=== PATIENT | female | born 1970 | race Two or more races ===

== ENCOUNTER 2020-04-05 17:28 | Outpatient (REF) | payer OTHER, SELFPAY | END 2020-04-05 17:29 | disposition home or self-care (01) | LOC: HO.LAB 17:28 | PROVIDERS: Visit Provider Internal Medicine | DX: Z20.828 Contact with and (suspected) exposure to other viral communicable diseases (principal) | CPT/HCPCS: C9803; U0003 ==

== ENCOUNTER 2020-05-24 10:55 | Outpatient (REF) | payer OTHER, SELFPAY | END 2020-05-24 10:56 | disposition home or self-care (01) | LOC: HO.LAB 10:55 | PROVIDERS: Visit Provider Internal Medicine | DX: Z20.828 Contact with and (suspected) exposure to other viral communicable diseases (principal) | CPT/HCPCS: 36415; C9803; U0003 ==

== ENCOUNTER 2024-11-25 15:22 | Outpatient (AMB) | payer OTHER, SELFPAY ==
--- OUTSIDE RECORDS SUMMARY | 2024-11-25 15:54 | XMS_ITS | Clinical Summary ---
[facility] [place] [address] Care Team Providers Care Industrial Ecology Technician Name Role Phone Jann Vance MD Primary Care Provider [phone] Surgical History Surgery Date Site/Laterality Comments OTHER SURGICAL HISTORY PROCEDURE: HYSTEROSCOPY, SURGICAL/ABLATION TUBAL LIGATION PROCEDURE: HISTORICAL TUBAL LIGATION OTHER SURGICAL HISTORY 02/2023 PROCEDURE: ID ANES CARDIAC ELECTROPHYSIOL STDY W/RF ABLATION; COMMENT: cardiav ablatojliliam Medical History Medical History Date Comments SVT (supraventricular tachyc ardia) (CMS/HCC V24) DX:SVT (supraventricular tac hycardia) ([facility]); COMMENT: cardiology - [facility] cariolgy 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 DX:Other specified menta l disorders due to known physiological condition Family History Medical History Relation Name Comments No Known Problems Brother Alzheimer's disease Father Hypertension Father No Known Problems Mother No Known Problems Sister 1 No Known Problems Sister 2 Relation Name Status Comments Brother Alive Father Father's side Alive Mother Alive Sister 1 Alive Sister 2 Alive Social History Tobacco Use Types Packs/Day Years Used Date Smoking Tobacco: Never Smokeless Tobacco: Never Alcohol Use Standard Drinks/Week Comments Yes 0 (1 standard drink = 0.6 oz pur e alcohol) Comments Unknown Sex and Gender Information Value Date Recorded Sex Assigned at Not on file Legal Sex Female 3:31 PM EST Gender Identity Not on file Sexual Orientation Not on file Obstetrics History Last Filed Vital Signs Vital Sign Reading Time Taken Comments Blood Pressure 120/83 01/23/2024 2:01 PM EDT Pulse 77 01/23/2024 2:01 PM EDT Temperature - - Respiratory Rate - - Oxygen Saturation - - Inhaled Oxygen Concentration - - Weight 59.4 kg (131 lb) 01/23/2024 2:01 PM EDT Height 165.1 cm (5' 5 ) 01/23/2024 2:01 PM EDT Body Mass Index 21.8 01/23/2024 2:01 PM EDT Plan of Treatment Health Maintenance Due Date Last Done Comments Breast Cancer Screening 1970 DTaP,Tdap,and Td Vaccines (1 - Tdap) 1988 Hepatitis B Vaccines (1 of 3 - 19+ 3-dose series) 1988 Cervical Cancer Screening: P ap Smear 1990 Pneumococcal Vaccine: 50+ Ye ars (1 of 1 - PCV) 12/16/2019 Zoster Vaccines (1 of 2) 12/16/2019 Colorectal Cancer Screening: Colonoscopy 04/19/2022 Depression Screening 04/19/2022 HIV Screening 04/19/2022 Hepatitis C Screening 04/19/2022 Social Influencers of Health Screening 04/19/2022 COVID-19 Vaccine (1 - 2023-2 5 season) 2024 Influenza Vaccine (#1) 2025 HIB Vaccines Aged Out No longer eligi ble based on patient's age to complete this topic HPV Vaccines Aged Out No longer eligi ble based on patient's age to complete this topic Hepatitis A Vaccines Aged Out No long er eligible based on patient's age to complete this topic IPV Vaccines Aged Out No longer eligi ble based on patient's age to complete this topic MMR Vaccines Aged Out No longer eligi ble based on patient's age to complete this topic Meningococcal ACWY Vaccine Aged Out N o longer eligible based on patient's age to complete this topic Meningococcal B Vaccine Aged Out No l onger eligible based on patient's age to complete this topic Pneumococcal Vaccine: Pediat rics (0 to 5 Years) and At-Risk Patients (6 to 49 Years) Aged Out No longer eligible b ased on patient's age to complete this topic RSV Immunization Patients Un lidya 20 months Aged Out No longer eligible b ased on patient's age to complete this topic Varicella Vaccines Aged Out No longer eligible based on patient's age to complete this topic Care Teams Industrial Ecology Technician Relationship Specialty Start Date End Date Jann Vance MD PCP - General 12/20/17
--- OUTSIDE RECORDS SUMMARY | 2024-11-25 15:54 | XMS_ITS | Patient Health Record ---
Author Organization [facility] Address [address] [id number] Care Team Providers Care Machine Spring Former Name Role Phone Jann Vance Primary Care Provider [phone] Cintia Sam Unavailable [phone] Allergies No Known Allergies Results Component Value Reference Range Notes MM Digital Mammo Screening Reviewed date:11/19/2024 09:19:21 PM Interpretation: Performing Lab: Notes/Report: PROCEDURE: MM Digital Mammo Screening INDICATION: Screening for breast cancer. No known palpable abnormalities. COMPARISON: Priors dating back to 01/15/2021 TECHNIQUE: Full-field digital CC and MLO 3D tomosynthesis images of both breasts were acquired. Computer-aided detection (CAD) was utilized in the interpretation of this study. DENSITY: The breasts are heterogeneously dense, which may obscure small masses. FINDINGS: No suspicious masses, suspicious microcalcifications, or areas of architectural distortion are seen in either breast to suggest malignancy. IMPRESSION: No mammographic evidence of malignancy. RECOMMENDATION: Annual mammographic screening BI-RADS: 1 (Negative) Lay letter mailed to patient WSN: [id number] Ordering Physician: Jann Vance Dictated By: Wendy Riggs MD MM Digital Mammo Screening Reviewed date:11/13/2024 01:49:28 PM Interpretation: Performing Lab: Notes/Report: EKG Reviewed date:02/15/2024 12:36:07 PM Interpretation: Performing Lab: Notes/Report: ECGDiastolicBP 0 ECGHr 74 ECGPRInterval 182 ECGPWaveAxis 58 ECGQRSDuration 94 ECGQrsWaveAxis 19 ECGQTcInterval 398 ECGQTInterval 374 ECGSystolicBP 0 ECGTWaveAxis 50 RR_DiastolicBP 0 RR_MaxRRInterval 0 RR_MeanHR 0 RR_MeanRRInterval 0 RR_MinRRInterval 0 RR_NumBeats 0 RR_NumNormalBeats 0 RR_SystolicBP 0 TSH reflex to [id number] Reviewed date:02/15/2024 12:36:07 PM Interpretation: Performing Lab:[facility], [address] [place] [address], Phone - [phone], Director - MDdry Notes/Report: TSH 2.200 0.450-4.500 uIU/mL Comp. Metabolic Panel (14)-3 59321 Reviewed date:02/15/2024 12:36:07 PM Interpretation: Performing Lab:[facility], [address] [place] [address], Phone - [phone], Director - [place] Notes/Report: Glucose 85 70-99 mg/dL BUN 18 6-24 mg/dL Creatinine 0.77 0.57-1.00 mg/dL eGFR 92 >59 mL/min/1.73 BUN/Creatinine Ratio 23 9-23 Sodium 141 134-144 mmol/L Potassium 4.2 3.5-5.2 mmol/L Chloride 102 96-106 mmol/L Carbon Dioxide, Total 23 20-29 mmol/L Calcium 9.5 8.7-10.2 mg/dL Protein, Total 6.8 6.0-8.5 g/dL Albumin 4.4 3.8-4.9 g/dL Globulin, Total 2.4 1.5-4.5 g/dL Bilirubin, Total 0.6 0.0-1.2 mg/dL Alkaline Phosphatase 86 44-121 IU/L AST (SGOT) 27 0-40 IU/L ALT (SGPT) 12 0-32 IU/L CBC With Differential/Platel et-[id number] Reviewed date:02/15/2024 12:36:07 PM Interpretation: Performing Lab:[facility], [address] [place] [address], Phone - [phone], Director - [place] Notes/Report: WBC 6.6 3.4-10.8 x10E3/uL RBC 4.16 3.77-5.28 x10E6/uL Hemoglobin 12.6 11.1-15.9 g/dL Hematocrit 37.9 34.0-46.6 % MCV 91 79-97 fL MCH 30.3 26.6-33.0 pg MCHC 33.2 31.5-35.7 g/dL RDW 13.0 11.7-15.4 % Platelets 302 150-450 x10E3/uL Neutrophils 61 Not Estab. % Lymphs 32 Not Estab. % Monocytes 5 Not Estab. % Eos 1 Not Estab. % Basos 1 Not Estab. % Neutrophils (Absolute) 4.0 1.4-7.0 x10E3/uL Lymphs (Absolute) 2.1 0.7-3.1 x10E3/uL Monocytes(Absolute) 0.3 0.1-0.9 x10E3/uL Eos (Absolute) 0.0 0.0-0.4 x10E3/uL Baso (Absolute) 0.0 0.0-0.2 x10E3/uL Immature Granulocytes 0 Not Estab. % Immature Grans (Abs) 0.0 0.0-0.1 x10E3/uL Phosphorylated Tau 217 (pTau -217) Reviewed date:10/29/2024 06:44:02 PM Interpretation: Performing Lab:[facility], [address], Phone - [phone], Director - [facility] Notes/Report: Test(s) [id number] was developed and its performance characteristics determined by [facility]. It has not been cleared or approved by the Food and Drug Administration. p-pfi363 0.39 0.00-0.18 pg/mL Clinical cutoff value was established using samples from a patient cohort characterized with amyloid PET data. A p-qbr062 value of >0.18 is a reported surrogate marker for beta amyloid pathology, and can be used to facilitate biological identification of Alzheimer's disease (1). p-sfm779 has also been used in clinical trials to monitor patients on anti-amyloid therapy (2,3). Test performed by [employer] chemiluminescent enzyme immunoassay (CLEIA). Values obtained with different methods cannot be used interchangeably. The validated limit of quantification is 0.06 pg/mL. Assay detection limit is 0.03 pg/mL. Footnotes 1. Ezra Negrete et al. Diagnostic Accuracy of a Plasma Phosphorylated Tau 217 Immunoassay for Alzheimer Disease Pathology. [facility] neurology (2023). 2. Ezra Negrete et al. Differential roles of A42/40, p-ggk516 and p-rrp701 for Alzheimer's trial selection and disease monitoring. Nature medicine 28.12 (2021): 5655-5618. 3. Roque LAMBERT, Lindsay M, Raquel SC, et al. Association of [place] Treatment With Exploratory Plasma Biomarkers in Early Symptomatic Alzheimer Disease: A Secondary Analysis of the TRAILBLAZER-ALZ Randomized Clinical Trial . [facility] Neurol. 2021;79(12):8030-0970. MR Brain Reviewed date:10/29/2024 06:44:02 PM Interpretation: Performing Lab: Notes/Report: Original Report EXAM: MR BRAIN WITHOUT CONTRAST INDICATION: Cognitive impairment of uncertain etiology, short-term memory loss, family history of Alzheimer's TECHNIQUE: Multiplanar multisequence imaging of the brain was obtained, without intravenous contrast administration. COMPARISON: Brain MRI from March 2023 FINDINGS: There are no space-occupying mass lesions seen within the brain. No midline shift, mass effect or hemorrhage is seen. Ventricular system is symmetrical, without hydrocephalus. No acute infarction is seen on diffusion images. Stable focus of susceptibility is seen along the left pontomedullary junction, as before suggestive of hemosiderin deposition. This could represent a small cavernous hemangioma. Craniocervical junction is preserved and the fourth ventricle is in the midline. Normal signal flow voids are seen along the major intracranial arteries. Visualized orbits and region of sella are preserved. No signal abnormalities are seen within the hippocampal formation. The calvarium is intact. IMPRESSION: 1. No acute intracranial pathology seen. No interval change since prior exam. 2. Stable focus of susceptibility in the left pontomedullary junction, suggestive of hemosiderin deposition versus calcification, as before. Read by: Angelica Leavitt M.D. Reviewed and Electronically Signed by: Sol Nath Informed Consent Fo Reviewed date:10/29/2024 06:44:02 PM Interpretation: Performing Lab:[facility], [address], [address], [place], Phone - [phone], Director - [facility] Notes/Report: [facility] Informed Consent Form [facility] Informed Consent Form 02 Please Fax back to [phone]. Many states require laboratories to have documentation that the appropriate health care provider has obtained informed consent from patients before the laboratory conducts genetic testing. Informed consent includes the patient understanding the purpose of the test, how the test is performed, the reliability of the test, alternatives to testing, implications of test results, and options on how to instruct the laboratory to store, use or dispose of the sample when testing is complete. [facility] did not receive any documentation of informed consent for above mentioned patient and ordered tests. Please check the statement applicable to this patient and sign below so that [facility] may release the results for this patient. . [] I authorize and confirm patient consent for the above mentioned genetic test(s). . [] I have provided appropriate informed consent for the above mentioned test(s) and documentation of this consent is maintained in the patient record. . . Health care provider signature D ate . Printed name . Fax back to [facility] at [phone] . [facility] Genetic Services APOE Alzheimer's Risk-200912 Reviewed date:10/29/2024 06:44:02 PM Interpretation: Performing Lab:[facility], [address], Phone - [phone], Director - [facility] Notes/Report: Test(s) [id number] was developed and its performance characteristics determined by [facility]. It has not been cleared or approved by the Food and Drug Administration. Methodology: Patient DNA is assayed for the APOE genotype by PCR amplification of a specific region in exon 4 of the APOE gene followed by digestion with restriction enzyme Checker I and separation of fragments by polyacrylamide gel electrophoresis. This approach allows the APOE E2, E3, and E4 alleles to be distinguished. Analytical sensitivity and specificity are >99.5%. Individuals are interpreted as having one of the following genotypes: E2/E2, E3/E3, E4/E4, E2/E3, E2/E4, E3/E4. APO E Genotyping Result: E3/E3 Interpretation: Negative for the APOE4 variant that is associated with increased risk for late onset Alzheimer's disease (AD). E3/E3 is the most common APOE genotype and is not associated with increased risk for AD. RECOMMENDATIONS Genetic counseling is recommended. Due to the lack of measures to prevent the development of AD, the ACMG/NSGC guidelines do not recommend presymptomatic testing, but if it is performed, guidelines are provided (Miller TENA et al. 2011). The APOE Genotyping: Alzheimer's Risk test is not recommended for children. NOTE: This is not a diagnostic test. Results should be interpreted along with clinical findings and other data. This test evaluates only for the APOE genotype and cannot detect genetic abnormalities elsewhere in the genome. It should be realized that there are possible sources of error including sample misidentification, rare technical errors, trace contamination of PCR reactions, and rare genetic variants that may interfere with analysis. For inquiries or genetic consultation, please call [facility] at . Comment: INFORMATION ABOUT THE APOE GENOTYPE AND ALZHEIMER'S DISEASE Alzheimer's disease (AD) is the most common form of dementia in the elderly and currently affects more than 5 million Americans. It is a progressive neurodegenerative disorder with brain findings of plaques and neurofibrillary tangles containing beta-amyloid and tau protein respectively. The predominant form of AD is late onset (age > 60-65), which can be familial (15-20%) or sporadic. The APOE4 variant increases the risk for late onset AD and may contribute to the pathology of the disease. This risk is increased by approximately 2 to 3-fold for individuals with one copy of the APOE4 variant and by approximately 10 [id number] for individuals with two copies of this variant (E4/E4 genotype). The APOE2 variant has some protective effect against development of late onset AD. The lifetime risk for late onset AD is approximately 10-12% in the general population, though it is higher in women than men and doubles when there is a first degree relative with this disorder. The lifetime risk is approximately 9% for individuals negative for APOE4, and for individuals with E4/E4 may be as high as 25% for males and 45% for females. Among patients with late onset AD, the presence of APOE4 may lead to earlier development of symptoms. However, APOE4 is neither necessary nor sufficient for the development of AD. Approximately 30-50% of patients with late onset AD do not have an APOE4 allele. APOE4 is common, with 25% of the general population having one copy and 1% having two copies of this variant. Among patients with late onset AD, 50-70% are positive for APOE4. The development of late onset AD is influenced by many factors other than APOE4 including age, gender, family history, level of education and history of head trauma. Midlife cardiovascular risk factors in individuals with APOE4 also increase risk for cognitive decline. A number of genetic influences in addition to APOE4 have also been reported and are under investigation. This test was developed and its performance characteristics determined by [facility]. It has not been cleared or approved by the Food and Drug Administration. The FDA has determined that such clearance or approval is not necessary. REFERENCES Deanne A et al. Sex modifies the APOE-related risk of developing Alzheimer disease. Annal Neurol 2014;75(4):563-573 Kristofer CHAVEZ. Alzheimer Disease Overview. GeneReviews (internet). Chad GUERRERO et al., editors. [facility]: [facility], [place], [place]. Last revised 2014. Bhatt JS et al. Genetic counseling and testing for Alzheimer disease: Joint practice guidelines of the [place] [employer] and the National Society of Genetic Counselors. Rosio in Med 2011;13(6)359-606. Greg NAIK. Apolipoprotein E: Implications for AD neurobiology, epidemiology and risk assessment. Neurobiology of Aging 2011;32:778-790 [id number] Reviewed date:10/29/2024 06:44:02 PM Interpretation: Performing Lab:[facility], [address], Phone - [phone], Director - [facility] Notes/Report: Test(s) [id number] was developed and its performance characteristics determined by [facility]. It has not been cleared or approved by the Food and Drug Administration. TSH 2.970 0.450-4.500 uIU/mL Thyroxine (T4) Free, Direct- [id number] Reviewed date:10/29/2024 06:44:02 PM Interpretation: Performing Lab:[facility], [address], Phone - [phone], Director - [facility] Notes/Report: Test(s) [id number] was developed and its performance characteristics determined by [facility]. It has not been cleared or approved by the Food and Drug Administration. T4,Free(Direct) 0.76 0.82-1.77 ng/dL Urinalysis, Complete-[id number] Reviewed date:07/29/2024 05:58:30 PM Interpretation: Performing Lab:[facility] [place], [address] [place] [address], Phone - [phone], Director - [facility] Notes/Report: Specific [place] 1.020 1.005-1.030 pH 7.0 5.0-7.5 Urine-Color Yellow Yellow Appearance Clear Clear WBC Esterase 1+ Negative Protein Trace Negative/Trace Glucose Negative Negative Ketones Negative Negative Occult Blood Negative Negative Bilirubin Negative Negative Urobilinogen,Semi-Qn 1.0 0.2-1.0 mg/dL Nitrite, Urine Positive Negative Microscopic Examination See below: Micr oscopic was indicated and was performed. WBC 0-5 0 - 5 /hpf RBC None seen 0 - 2 /hpf Epithelial Cells (non renal) 0-10 0 - 10 /hpf Casts None seen None seen /lpf Bacteria None seen None seen/Few Vitamin [id number] Reviewed date:10/29/2024 06:44:01 PM Interpretation: Performing Lab:[facility], [address], Phone - [phone], Director - [facility] Notes/Report: Test(s) [id number] was developed and its performance characteristics determined by [facility]. It has not been cleared or approved by the Food and Drug Administration. Vitamin B12 628 510-7428 pg/mL MM Digital Mammo Screening Reviewed date:11/19/2024 09:19:21 PM Interpretation: Performing Lab: Notes/Report: HCV Antibody-[id number] Reviewed date:07/29/2024 05:58:30 PM Interpretation: Performing Lab:[facility], [address] [place] [address], Phone - [phone], [facility] - [facility] Notes/Report: Hep C Virus Ab Non Reactive Non Reactive HCV antibody alone does not differentiate between previously resolved infection and active infection. Equivocal and Reactive HCV antibody results should be followed up with an HCV RNA test to support the diagnosis of active HCV infection. Thyroxine (T4) Free, Direct- [id number] Reviewed date:07/29/2024 05:58:30 PM Interpretation: Performing Lab:[facility] [place], [address] [place] [address], Phone - [phone], Director - MDdry Notes/Report: T4,Free(Direct) 0.78 0.82-1.77 ng/dL COLOGUARD Reviewed date:08/13/2024 06:23:42 PM Interpretation:Negative Performing Lab: Notes/Report: Negative FIT DNA COLOGUARD 08/12/2024 LP+Non-HDL Cholesterol-81172 5 Reviewed date:07/29/2024 05:58:30 PM Interpretation: Performing Lab:[facility] [place], [address] [place] [address], Phone - [phone], Director - [facility] Notes/Report: Cholesterol, Total 183 100-199 mg/dL Triglycerides 65 0-149 mg/dL HDL Cholesterol 68 >39 mg/dL VLDL Cholesterol [place] 12 5-40 mg/dL LDL Chol Calc (NIH) 103 0-99 mg/dL Non-HDL Cholesterol 115 0-129 mg/dL Comp. Metabolic Panel (14)-3 [id number] Reviewed date:07/29/2024 05:58:30 PM Interpretation: Performing Lab:[facility] [place], [address] [place] [address], Phone - [phone], Director - [facility] Notes/Report: Glucose 93 70-99 mg/dL BUN 18 6-24 mg/dL Creatinine 0.79 0.57-1.00 mg/dL eGFR 89 >59 mL/min/1.73 BUN/Creatinine Ratio 23 9-23 Sodium 142 134-144 mmol/L Potassium 4.3 3.5-5.2 mmol/L Chloride 103 96-106 mmol/L Carbon Dioxide, Total 23 20-29 mmol/L Calcium 9.7 8.7-10.2 mg/dL Protein, Total 6.9 6.0-8.5 g/dL Albumin 4.5 3.8-4.9 g/dL Globulin, Total 2.4 1.5-4.5 g/dL Bilirubin, Total 0.6 0.0-1.2 mg/dL Alkaline Phosphatase 98 44-121 IU/L AST (SGOT) 22 0-40 IU/L ALT (SGPT) 12 0-32 IU/L Vitamin D, 83-[id number] Reviewed date:07/29/2024 05:58:30 PM Interpretation: Performing Lab:[facility], [address] [facility], Phone - [phone], Director - [place] Notes/Report: Vitamin D, 25-Hydroxy 63.4 30.0-100.0 ng/mL Vitamin D deficiency has been defined by the [place] of Medicine and an Endocrine Society practice guideline as a level of serum 25-OH vitamin D less than 20 ng/mL (1,2). The Endocrine Society went on to further define vitamin D insufficiency as a level between 21 and 29 ng/mL (2). 1. IOM ([place] of [employer]). 2010. Dietary reference intakes for calcium and D. [place]: The National Academies Press. 2. Gwen MF, Roger NC, Bettina-Domingo PROCTOR, et al. Evaluation, treatment, and prevention of vitamin D deficiency: an Endocrine Society clinical practice guideline. JCEM. 2010; 96(7):1911-30. CBC With Differential/Platel et-[id number] Reviewed date:07/29/2024 05:58:30 PM Interpretation: Performing Lab:[facility], [address] [facility], [place], Phone - [phone], Director - [place] Notes/Report: WBC 5.3 3.4-10.8 x10E3/uL RBC 4.35 3.77-5.28 x10E6/uL Hemoglobin 12.9 11.1-15.9 g/dL Hematocrit 38.9 34.0-46.6 % MCV 89 79-97 fL MCH 29.7 26.6-33.0 pg MCHC 33.2 31.5-35.7 g/dL RDW 12.6 11.7-15.4 % Platelets 320 150-450 x10E3/uL Neutrophils 61 Not Estab. % Lymphs 29 Not Estab. % Monocytes 8 Not Estab. % Eos 1 Not Estab. % Basos 1 Not Estab. % Neutrophils (Absolute) 3.3 1.4-7.0 x10E3/uL Lymphs (Absolute) 1.5 0.7-3.1 x10E3/uL Monocytes(Absolute) 0.4 0.1-0.9 x10E3/uL Eos (Absolute) 0.1 0.0-0.4 x10E3/uL Baso (Absolute) 0.0 0.0-0.2 x10E3/uL Immature Granulocytes 0 Not Estab. % Immature Grans (Abs) 0.0 0.0-0.1 x10E3/uL Reason For Referral Reason faxed Diagnosis 1 Alzheimer's disease with early onset (G30.0) Referral Organization [facility] Referring Provider First Name Jann Referring Provider Last Name Rajiv [facility] Referred Provider Brendan Fletcher Referred Provider Specialty Neurology General Notes [facility] 01:01:35 PM >faxed, [facility] 10/24/2024 01:01:42 PM >To Berenice for appt., [facility] Graciela 10/28/2024 08:53:31 AM >Received fax, patient booked 11/25/[address] Sams[address] [facility] Graciela 10/28/2024 04:41:43 PM >Message sent to patient through portal of appt. Referral Priority Urgent Referral Appointment Date 11/25/2024 Reason faxed Diagnosis 1 Alzheimer's disease with early onset (G30.0) Referral Organization [facility] Referring Provider First Name Jann Referring Provider Last Name Rajiv Referring Provider [facility] Referred Provider Brendan Fletcher Referred Provider Specialty Neurology General Notes Graciela WILSON 10/19 04:49:32 PM >faxed Referral Priority Routine Medications Medication SIG (Take, Route, Frequency, Duration) Notes Start Date End Date Status LORazepam 1 MG 1 Tablet Orally Once a day 08/05/2024 Active Citalopram Hydrobromide 10 MG TAKE 1 TABLET BY MOUTH EVERY DAY FOR 30 DAYS; Duration: 90 Active Cyanocobalamin 1000 MCG 1 tablet Orally Once a day; Duration: 90 days 10/29/2024 10/24/2025 Active Cyanocobalamin 1000 MCG/ML 1 mL Injectio n Once a Week; Duration: 28 days 10/29/2024 11/26/2024 Active Immunizations Vaccine Route Administration Date Status Comme nts Td (adult) preservative free Unknown 08/18/2002 Administered Td (adult) preservative free IM Intramuscular 07/05/2021 Administered Wgxehktaq-7639-91 Afluria-Single IM Intramuscular 03/06/2018 Administered BBFBU-99-Tuwlxo Vaccine Unknown 08/19/2020 Administered BHZEK-94-Vpjevs Vaccine Unknown 09/10/2020 Administered XOZXC-32-Hvlqke Vaccine Unknown 05/18/2021 Administered *Tdap Unknown 01/30/2011 Administered *Influenza-Quadrivalent IM Intramuscular 04/17/2023 Admini stered *Influenza-Fluzone IM Intramuscular 03/13/2024 Administere d *Zmzzjpooz-Mhhy-OA IM Intramuscular 04/01/2020 Administere d *Nlncdvguw-Fimg-NJ IM Intramuscular 04/20/2021 Administere d *Jsmsxndrv-Hgqc-YO IM Intramuscular 03/28/2022 Administere d Social History Tobacco Use: Social History Observation Description Date Details (start date - stop date) Never Smoker NA - NA Alcohol Screen (Audit-C) Question Answer Notes Did you have a drink contain ing alcohol in the past year? Yes Did you have a drink contain ing alcohol in the past year? Yes How often did you have a dri nk containing alcohol in the past year? 2 to 4 times a month (2 points) How often did you have a dri nk containing alcohol in the past year? 2 to 4 times a month (2 points) How many drinks did you have on a typical day when you were drinking in the past year? 1 or 2 drinks (0 point) How many drinks did you have on a typical day when you were drinking in the past year? 1 or 2 drinks (0 point) How often did you have 6 or more drinks on one occasion in the past year? Never (0 point) How often did you have 6 or more drinks on one occasion in the past year? Never (0 point) Points 2 Points 2 Interpretation Negative Interpretation Negative AUDIT-C (Standard) Question Answer Notes Did you have a drink contain ing alcohol in the past year? Yes How often did you have six o r more drinks on one occasion in the past year? Never (0 point) How many drinks did you have on a typical day when you were drinking in the past year? 1 or 2 drinks (0 point) How often did you have a dri nk containing alcohol in the past year? Monthly or less (1 point) Points 1 Interpretation Negative Tobacco Control (Standard) Question Answer Notes Tobacco use: Nonsmoker Problems Problem Type SNOMED Code ICD Code Onset Dates Problem Status W/U Status Risk Notes Problem Pernicious anemia (06325718) Vitamin B12 deficiency anemia due to intrinsic factor deficiency (D51.0) Active confirmed Problem Hypothyroidism (06893163) Hypothyroidism, unspecified (E03.9) Active confirmed Problem Vitamin D deficiency (09892236) Vitamin D deficiency, unspecified (E55.9) Active confirmed Problem Recurrent major depression in remission (56999142) Major depressive disorder, recurrent, in partial remission (F33.41) Active confirmed Problem Alzheimer's disease with early onset (665851754) Alzheimer's disease with early onset (G30.0) Active confirmed Problem 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, right ear (H81.311) Active confirmed Problem Sensorineural hearing loss of bilateral ears (disorder) (687190736) Sensorineural hearing loss, bilateral (H90.3) Active confirmed Problem Sensorineural hearing loss of right ear with normal hearing on left side (disorder) (4882297778) Sensorineural hearing loss, unilateral, right ear, with unrestricted hearing on the contralateral side (H90.41) Active confirmed Problem Urticaria caused by cold and heat (147098650) 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) Active confirmed Problem Vitiligo (53983334) Vitiligo (L80) Active confirmed Problem Idiopathic scoliosis of thoracic spine (disorder) (772618873) Other idiopathic scoliosis, thoracic region (M41.24) Active confirmed Problem Right side sciatica (719419883452517) Sciatica, right side (M54.31) Active confirmed Problem Menopause (462937886) Menopausal and female climacteric states (N95.1) Active confirmed Problem Panic disorder (500696240) Panic disorder [episodic paroxysmal anxiety] (F41.0) Active confirmed Problem Mild cognitive disorder (702117151) Mild cognitive impairment of uncertain or unknown etiology (G31.84) Active confirmed Problem Supraventricular tachycardia (disorder) (3580738) Other supraventricular tachycardia (I47.19) Active confirmed Problem Moderate major depression, single episode (67024915) Major depressive disorder, single episode, moderate (F32.1) Inactive confirmed Problem Major depression single episode, in partial remission (74457562) Major depressive disorder, single episode, in partial remission (F32.4) Inactive confirmed Problem COVID19 MALLORY-Viru s Identified (U07.1) Problem resolved confirmed Vital Signs Heart Rate 81 /min 11/03/2024 Temperature 96.4 degrees Fahrenheit 07/25/2024 Blood pressure diastolic 74 mm Hg 07/25/2024 Oximetry 99 % 11/03/2024 Height 63.5 in 11/03/2024 Blood pressure systolic 122 mm Hg 07/25/2024 Weight 138 lbs 11/03/2024 BMI 24.06 kg/m2 11/03/2024 Procedures Procedure Date Ordered Date Performed Result Body Sit e HOLTER MONITOR, 7 DAYS, INTERPRETATION 03/13/2024 N/A HOLTER MONITOR, 7 DAYS, APPLICATION 02/14/2024 N/A Encounters Encounter Location Date Provider Diagnosis Jann Vance MD [address] [id number] 01/24/2024 Jann Vance Major depressive disorder, recurrent, in partial remission F33.41 ; Panic disorder [episodic paroxysmal anxiety] F41.0 and Other supraventricular tachycardia I47.19 Jann Vance MD [address] [id number] 02/14/2024 Cintia Sam Palpitations R00.2 ; Major depressive disorder, recurrent, in partial remission F33.41 ; Other supraventricular tachycardia I47.19 and Panic disorder [episodic paroxysmal anxiety] F41.0 Jann Vance MD [address] [id number] 03/13/2024 Cintia Sam Palpitations R00.2 ; Major depressive disorder, recurrent, in partial remission F33.41 ; Other supraventricular tachycardia I47.19 ; Panic disorder [episodic paroxysmal anxiety] F41.0 and Encounter for immunization Z23 Jann Vance MD [address] [id number] 07/25/2024 Jann Vance Major depressive disorder, recurrent, in partial remission F33.41 ; Encounter for general adult medical examination without abnormal findings Z00.00 ; Panic disorder [episodic paroxysmal anxiety] F41.0 ; Other supraventricular tachycardia I47.19 ; Mild cognitive impairment of uncertain or unknown etiology G31.84 ; Sensorineural hearing loss, unilateral, right ear, with unrestricted hearing on the contralateral side H90.41 ; Vitamin D deficiency, unspecified E55.9 ; Encounter for screening for malignant neoplasm of colon Z12.11 ; Encounter for screening mammogram for malignant neoplasm of breast Z12.31 ; Encounter for screening for osteoporosis Z13.820 ; Encounter for screening for cardiovascular disorders Z13.6 ; Encounter for immunization Z23 ; Encounter for antibody response examination Z01.84 and Encounter for screening for other viral diseases Z11.59 Jann Vance MD [address] [id number] 09/24/2024 Jann Vance Mild cognitive impairment of uncertain or unknown etiology G31.84 and Hypothyroidism, unspecified E03.9 Jann Vance MD [address] [id number] 11/03/2024 Jann Vance Alzheimer's disease with early onset G30.0 and Vitamin B12 deficiency anemia due to intrinsic factor deficiency D51.0 Jann Vance MD [address] [id number] 11/12/2024 Jann Vance Vitamin B12 deficien cy anemia due to intrinsic factor deficiency D51.0 Jann Vance MD [address] [id number] 11/19/2024 Jann Vance Vitamin B12 deficien cy anemia due to intrinsic factor deficiency D51.0 Jann Vance MD [address] [id number] 12/04/2023 Jann Vance MD [address] [id number] 01/09/2024 Jann Vance MD [address] [id number] 01/09/2024 Jann Vance Panic disorder [epis odic paroxysmal anxiety] F41.0 Jann Vance MD [address] [id number] 01/10/2024 Jann Vance MD [address] [id number] 03/13/2024 Jann Vance MD [address] [id number] 07/29/2024 Jann Vance Hypothyroidism, unspecified E03.9 Jann Vance MD [address] [place] [address] [id number] 08/04/2024 Jann Vance MD [address] [id number] 10/24/2024 Jann Vance MD [address] [id number] 10/24/2024 Jann Vance Alzheimer's disease with early onset G30.0 Jann Vance MD [address] [id number] 10/29/2024 Jann Vance MD [address] [id number] 08/05/2024 Jann Vance Panic disorder [epis odic paroxysmal anxiety] F41.0 Assessments Encounter Date Diagnosis (ICD Code) Assessment Notes Treatment Notes Treatment Clinical Notes Section Notes 01/09/2024 Panic disorder [episodic paroxysmal anxiety] (ICD-10 - F41.0) 01/24/2024 Major depressive disorder, recurrent, in partial remission (ICD-10 - F33.41) She feels she is doing okay with current medical therapy. She does not feel that she needs to increase medical therapy. She has not had any panic attacks. Continue current therapy 01/24/2024 Panic disorder [episodic paroxysmal anxiety] (ICD-10 - F41.0) Controlled with current medical therapy without any acute flares. 07/25/2024 Major depressive disorder, recurrent, in partial remission (ICD-10 - F33.41) She feels she is doing okay. She is having a good winter so far without any significant depression compared to her prior episodes. Continue current medical therapy and supportive care 07/25/2024 Encounter for general adult medical examination without abnormal findings (ICD-10 - Z00.00) General healthcare up-to-date. Check routine labs 09/24/2024 Mild cognitive impairment of uncertain or unknown etiology (ICD-10 - G31.84) She still having some word finding difficulty and her [place] cognitive assessment test suggest some mild impairment. She does not have a history of learning disability and so this is probably early mild cognitive impairment. Can evaluate for reversible causes as well as structural disease as well as infiltrative disease. 10/24/2024 Alzheimer's disease with early onset (ICD-10 - G30.0) 11/03/2024 Vitamin B12 deficiency anemia due to intrinsic factor deficiency (ICD-10 - D51.0) Her B12 level is low and this may also impact her cognitive function. Recommend B12 replacement as planned 11/03/2024 Alzheimer's disease with early onset (ICD-10 - G30.0) Her tau protein is elevated. She most likely has Alzheimer's as a component of her memory impairment. Her insurance would not allow her to have further evaluation by having a PET scan. Recommend neurology evaluation for further assessment and treatment of her Alzheimer's. 11/12/2024 Vitamin B12 deficiency anemia due to intrinsic factor deficiency (ICD-10 - D51.0) 11/19/2024 Vitamin B12 deficiency anemia due to intrinsic factor deficiency (ICD-10 - D51.0) 07/29/2024 Hypothyroidism, unspecified (ICD-10 - E03.9) 08/05/2024 Panic disorder [episodic paroxysmal anxiety] (ICD-10 - F41.0) 03/13/2024 Palpitations (ICD-10 - R00.2) Holter monitor reviewed and NSR noted with intermittent episodes of Sinus Tachycardia. Previous in office EKG also reviewed again which did reveal normal sinus rhythm. Discussed with patient that there is no further workup warranted unless symptoms return or new symptoms of concern began, which patient will follow up with office should this occur 02/14/2024 Palpitations (ICD-10 - R00.2) EKG completed in office today and normal sinus rhythm noted. Discussed with patient that there is no active cardiac event noted on EKG. Will obtain updated labs given patient's concerns of heart pain. Will also place a 7-day Holter monitor for further evaluation, especially given patient's SVT history and post ablation status. Discussed with patient that if symptoms worsen or new symptoms of concern began, patient to notify on-call provider and patient may require urgent evaluation 02/14/2024 Major depressive disorder, recurrent, in partial remission (ICD-10 - F33.41) Stable and patient to continue current medication regimen as patient states she feels well-controlled 02/14/2024 Other supraventricular tachycardia (ICD-10 - I47.19) Symptomatically stable without any recurrent episodes. Given patient's underlying history of SVT and previous ablation, patient is agreeable to wear a 7-day Holter monitor for further evaluation given her symptoms of concern during today's visit 03/13/2024 Major depressive disorder, recurrent, in partial remission (ICD-10 - F33.41) Stable at present time patient to continue on current medication regimen 09/24/2024 Hypothyroidism, unspecified (ICD-10 - E03.9) Due for recheck labs to verify stable and adequate control. 01/24/2024 Other supraventricular tachycardia (ICD-10 - I47.19) Symptomatically stable without any recurrent episodes. 07/25/2024 Panic disorder [episodic paroxysmal anxiety] (ICD-10 - F41.0) As above. She is feels she is doing well this winter. Continue current medical therapy. 07/25/2024 Other supraventricular tachycardia (ICD-10 - I47.19) Symptomatically stable without any recurrent episodes after successful ablation 03/13/2024 Other supraventricular tachycardia (ICD-10 - I47.19) Symptomatically stable without any recurrent episodes. Patient does have an underlying history of SVT and previous ablation and patient aware that if symptoms return or new symptoms of concern began then she should follow-up in office for further cardiac evaluation 02/14/2024 Panic disorder [episodic paroxysmal anxiety] (ICD-10 - F41.0) Stable and patient feels well-controlled on current medication regimen. She states that her anxiety has been well-controlled 03/13/2024 Panic disorder [episodic paroxysmal anxiety] (ICD-10 - F41.0) Stable and patient feels well-controlled on current medication regimen. She states that her anxiety has been well-controlled since last visit 07/25/2024 Mild cognitive impairment of uncertain or unknown etiology (ICD-10 - G31.84) She reports she had an episode of where she became slightly disoriented. She was driving and did not know which way to go. She had recovery of cognitive function within 30 seconds. At this point can recheck [place] cognitive assessment test and if that is normal then this may be a senior moment . Otherwise further evaluation may be necessary. 07/25/2024 Sensorineural hearing loss, unilateral, right ear, with unrestricted hearing on the contralateral side (ICD-10 - H90.41) Stable and unchanged 03/13/2024 Encounter for immunization (ICD-10 - Z23) Patient agreeable to receive her flu vaccine in office today 07/25/2024 Vitamin D deficiency, unspecified (ICD-10 - E55.9) Fair control on prior labs as reviewed. Recommend vitamin D supplementation for goal level of 30+ 07/25/2024 Encounter for screening for malignant neoplasm of colon (ICD-10 - Z12.11) Due for repeat colon cancer screening 07/25/2024 Encounter for screening mammogram for malignant neoplasm of breast (ICD-10 - Z12.31) Up-to-date on breast cancer screening based on new guidelines of biannual screening 07/25/2024 Encounter for screening for osteoporosis (ICD-10 - Z13.820) Up-to-date on osteoporosis screening 07/25/2024 Encounter for screening for cardiovascular disorders (ICD-10 - Z13.6) Blood pressure stable. Can check for comorbidity of hyperlipidemia and hyperglycemia to further assess risk 07/25/2024 Encounter for immunization (ICD-10 - Z23) Vaccines up-to-date 07/25/2024 Encounter for antibody response examination (ICD-10 - Z01.84) Titers have been checked in the past and there is immunity to rubeola 07/25/2024 Encounter for screening for other viral diseases (ICD-10 - Z11.59) Can screen for hepatitis C as per general recommendation 01/24/2024 Other This note was created with voice dictation recognition software and may contain errors of grammar and syntax. Also labs were reviewed with patient. 07/25/2024 Other This note was created with voice dictation recognition software and may contain errors of grammar and syntax. Also labs were reviewed with patient. 09/24/2024 Other This note was created with voice dictation recognition software and may contain errors of grammar and syntax. Also labs were reviewed with patient. 11/03/2024 Other This note was created with voice dictation recognition software and may contain errors of grammar and syntax. Also labs were reviewed with patient. Plan Of Treatment Pending Test Test Name Order Date 25OH VITAMIN D 06/30/2020 25OH VITAMIN D 07/17/2022 COMPLETE CBC WITH DIFF 07/17/2022 COMPLETE CBC WITH DIFF 06/30/2020 COMPLETE URINALYSIS 06/30/2020 COMPLETE URINALYSIS 05/23/2018 COMPLETE URINALYSIS 07/17/2022 COMPLETE URINALYSIS 07/24/2023 COMPREHENSIVE METABOLIC PANEL 06/30/2020 COMPREHENSIVE METABOLIC PANEL 07/17/2022 FREE T4 06/30/2020 LIPID PANEL W REFLEX TO DLDL 06/30/2020 LIPID PANEL W REFLEX TO DLDL 07/17/2022 SEDIMENTATION RATE 03/16/2023 URINE COLLECTION PERIOD 10/03/2017 CBC 07/05/2021 COMPREHENSIVE METABOLIC PANEL 07/05/2021 FOLATE 05/09/2017 LIPID PROFILE 07/05/2021 TSH 07/05/2021 URINALYSIS 07/05/2021 VITAMIN D, 25-HYDROXY 07/05/2021 LYME C6 ANTIBODY-CURRENT 03/16/2023 ANTI-HEPATITIS C W/RFLX HCV QNT 07/17/19 23 COLOGUARD 07/24/2023 HOLTER MONITOR, 7 DAYS, APPLICATION 01/20 HOLTER MONITOR, 7 DAYS, INTERPRETATION 1 Thyroxine (T4) Free, Direct-[id number] 07/29 TSH-[id number] 07/29/2024 Anti-TPO Ab (RDL)-[id number] 07/29/2024 Future Test Test Name Order Date Tamra Screening Digital 10/19/2020 CBC 06/21/2022 COMPREHENSIVE METABOLIC PANEL 06/21/2022 HEPATITIS C VIRUS SCREEN 06/21/2022 LIPID PROFILE 06/21/2022 URINALYSIS 06/21/2022 VITAMIN D, 25-HYDROXY 06/21/2022 Next Appt Details Provider Name:Jann Vance , 11/26/2024 09:00:00 AM, [address] [place] [address], [phone], Provider Name:Jann Vance , 12/03/2024 09:00:00 AM, [address] [place] [address], [phone], Provider Name:Jann Vance , 02/12/2025 10:15:00 AM, [address] [place] [address], [phone], Provider Name:Jann Vance , 04/28/2025 09:30:00 AM, [address] [place] [address], [place] [address], [place], [place], [phone], Provider Name:Jann Vance , 08/03/2025 08:30:00 AM, [address] [place] [address], [place] [address], [place], [place], [phone], Insurance Providers Payer Name Payer Address Payer Phone Subscriber Number Group Number Insured Name Patient Relationship to Insured Coverage Start Date Coverage End Date [facility] [address] [place] [phone] [id number] Landy Gomez Self - patient is the insured Medications Administered Medication Instructions Date of Administration Dosage Notes Cyanocobalamin 11/12/2024 1 mL Cyanocobalamin 11/19/2024 1 mL Medical (General) History Medical History History ICD Code Urticaria due to cold and heat L50.2 Panic disorder [episodic paroxysmal anxi ety] without agoraphobia F41.0 Vitamin D deficiency, unspecified E55.9 Idiopathic gout, left ankle and foot M10 .072 Lateral epicondylitis, left elbow M77.12 Major depressive disorder, single episod e, moderate F32.1 Mild cognitive impairment, so stated G31 .84 Supraventricular tachycardia I47.1 COVID19 MALLORY-Virus Identified (resolved 0 06/30/2020) Surgical History Surgery Date(Month/Year) 2007 Bilateral tubal ligation SVT ablasion 01/25/2022 Hospitalization History Reason Date(Month/Year)
--- NOTE | 2024-11-25 16:04 | A.OFFVIS_ITS ---
Intake Visit Reasons: EARLY ONSET ALZHEIMERS Allergies No Known Allergies (No Known Allergies*) Allergy (Unverified 02/05/20 15:11) Medication List - Last Reconciled 11/25/24 by An Sams MD citalopram 10 mg PO DAILY cyanocobalamin (vitamin B-12) 1,000 mcg IM QWEEK lorazepam 1 mg PO DAILY PRN HPI Comments Details: This is a 53-year-old woman with a history of anxiety, depression and panic attacks who comes in because of concerns of memory decline over the last year. She feels she has short-term memory problems and difficulty expressing herself because she uses wrong words and is having trouble with name retrieval. She may repeat herself occasionally. 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 She drive safely but had 1 momentary spacing out while driving where she felt disoriented and had to be reminded as to where she was. She has a strong family history of early-onset dementia. Her father developed dementia in his 50s. Paternal cousin developed dementia in the 40s and at 54. Her paternal grandfather also had dementia. She has had 2 normal MRIs of the brain in 04/12 and on 09/29/2024 which were unremarkable except for stable left pontomedullary junction calcification or hemosiderin deposit. Lab work has shown a B12 deficiency and she is currently getting week ly B12 injections subcutaneously. Her serum F p-tau was elevated at 0.39 with the upper limit being 0.18. Her ApoEl genotype was E3 E3. [facility] Medical History (Updated 11/25/24 @ 16:13 by An Sams MD) Lateral epicondylitis of left elbow Idiopathic gout of left ankle Other supraventricular tachycardia Mild cognitive impairment of uncertain or unknown etiology Panic disorder [episodic paroxysmal anxiety] Menopausal and female climacteric states Sciatica of right side Other idiopathic scoliosis, thoracic region Vitiligo Urticaria due to cold and heat Sensorineural hearing loss (SNHL), bilateral Aural vertigo, right ear Alzheimer's disease with early onset Major depressive disorder, recurrent episode, in partial remission Vitamin D deficiency Hypothyroidism Vitamin B12 deficiency anemia Surgical History (Updated 11/24/24 @ 18:04 by Patricia Luna MA) History of bilateral tubal ligation Family History (Updated 11/24/24 @ 18:07 by Patricia Luna MA) Father Alzheimers disease Mother Thyroid disease Review of Systems Const Details: Sleep Difficulty getting to sleep?denies.?Difficulty maintaining sleep?denies?.?Urge to move legs?denies.?Teeth grinding?denies.?Shouting or Kicking during sleep ?denies.?Abnormal behavior during sleep?denies.?Excessive sleep?denies.?Snoring ?denies.?Daytime sleepiness?denies. ? General/Constitutional Change in appetite?denies.?Chills?denies.?Fatigue?denies.?Fever?denies.?Weight gain?yes.?Weight loss?denies. ? Ophthalmologic Blurred vision?denies.?Diminished visual acuity?denies. ? ENT Stuffiness?denies.?Decreased hearing?yes.?Dry mouth?denies.?Ear pain?denies.? Nosebleed?denies.?Ringing in the ears?yes.?Sinus pain?denies.?Sore throat ?denies.?Swollen glands?denies. ? Endocrine Cold intolerance?denies.?Excessive thirst?denies.?Frequent urination?denies.? Heat intolerance?denies. ? Respiratory Shortness of breath?denies.?Chest pain?denies.?Cough?denies. ? Breast Breast lump?denies.?Nipple discharge?denies. ? Cardiovascular Chest pain at rest?denies.?Chest pain with exertion?denies.?Claudication ?denies.?Dizziness?denies.?Fluid accumulation in the legs?denies.?Irregular heartbeat?denies.?Palpitations?denies. ? Gastrointestinal Abdominal pain?denies.?Constipation?denies.?Diarrhea?denies.?Difficulty swallowing?denies.?Heartburn?denies.?Nausea?denies.?Rectal bleeding?denies. ? Hematology Easy bruising?denies.?Prolonged bleeding?denies. ? Genitourinary Frequent urination?denies.?Urgency?denies.?Incontinence?denies.?Erectile Dysfunction?denies. ? Musculoskeletal Neck pain?denies.?Back pain?denies.?Muscle aches?denies.?Painful joints ?denies.?Sciatica?denies.?Weakness?denies. ? Podiatric Difficulty walking?denies.?Foot numbness?denies. ? Neurologic Difficulty swallowing?denies.?Balance difficulty?denies.?Coordination?normal.? Difficulty speaking?denies.?Dizziness?vertigo.?Fainting?denies.?Gait abnormality ?denies.?Headache?denies.?Loss of strength?denies.?Loss of use of extremity ?denies.?Low back pain?denies.?Memory loss?yes.?Seizures?denies.?Tics?denies.? Tingling/Numbness?denies.?Transient loss of vision?denies.?Tremor?denies. ? Psychiatric Anxiety?yes.?Auditory/visual hallucinations?denies.?Delusions?denies.?Depressed mood?yes.?Stressors?denies.?Substance abuse?denies.?Suicidal thoughts?denies. Physical Exam Vital Signs: 65inches. 135lbs, Normotensive Neuro Other: ? Neurological Abnormal neurological findings:?MMS 27/30.? Mental Status:?alert and oriented X 3,?Normal attention, orientation, and affect.? Cranial Nerves:?Pupils are equal, round and reactive to light. Fundoscopy shows normal disc bilaterally. External occular muscles are intact. Visual ann are full, no ptosis. Face is symmetrical, no facial weakness or droop. Facial sensations are normal. Tongue protrudes in midline. Palate elevates symmetrically. Shoulder shrugging is normal..? Motor Examination:?Normal muscle tone, bulk and strength,?No atrophy or fasciculations,?No drift of the extended upper extremities,?Deep tendon reflexes are 2+?,?Plantars are flexor?.? Motor Strength:?Proximal Muscles (out of 5):5Distal Muscles (out of 5):5Neck Flexors (out of 5):5Neck Extensors (out of 5):5Deltoid (out of 5):5Biceps (out of 5):5Triceps (out of 5):5Serratus Anterior (out of 5):5Wrist Extensors (out of 5):5APB (out of 5):5Finger Spread (out of 5):5Ileopsoas (out of 5):5Quadriceps (out of 5):5Hamstrings (out of 5):5Tibialis Anterior (out of 5):5Peronei (out of 5):5EDB (out of 5):5Gastrocnemius (out of 5):5Straight Leg Raising:?90 degrees.? Sensory Exam:?Normal light touch, temperature, pinprick, vibration and joint- position sensations?,?Rhomberg sign is absent.? Coordination:?no ataxia,?no titubation,?qifqvh-mw-oktv, worf-fvqf-mfir test and rapid alternating movements were normal.? Gait Exam:?Within normal limits.? Cerebellar Signs:?Cksazm-dy-xhkj and fwyb-ww-fmgl is normal,?no dysdiadochokinesia?.? Extrapyramidal System:?No tremor, rigidity with normal facial expressions,?No bradykinesia, no bradyphrenia. Normal arm swing and posture. No propulsion or retropulsion.? Speech:?Normal,?no dysphasia or dysarthria..? Mini Mental Status Exam Level of Consciousness:?Alert.? Orientation:?Knows correct year, month, date, day and season,?Knows correct city, county and state. Knows correct location and floor.? Registration:?Able to register 3 objects.? Attention:?Serial 7's performed accurately to 79.? Recall:?Able to recall 1 out of 3 objects.? Language:?Normal spontaneous speech, fluency, repetition,naming, comprehension, reading and writing.? Total Score:?27/30.? General Examination GENERAL APPEARANCE:?normal,?in no acute distress.? HEAD:?normocephalic,?atraumatic.? EYES:?sclera non-icteric,?conjunctiva clear.? EARS:?auditory canal clear,?tympanic membrane intact, clear.? NOSE:?no lesions.? ORAL CAVITY:?gums normal,?mucosa moist,?no lesions.? THROAT:?clear.? NECK/THYROID:?no cervical lymphadenopathy,?thyroid normal,?neck supple, full range of motion,?no carotid bruit.? SKIN:?no rashes,?no significant birthmarks.? HEART:?S1, S2 normal,?no murmurs.? LUNGS:?clear anteriorly and posteriorly.? CHEST:?no gross rib deformity,?clear to auscultation.? BACK:?normal exam of spine.? EXTREMITIES:?no edema.? PERIPHERAL PULSES:?normal.? PSYCH:?alert, oriented,?cognitive function intact,?cooperative with exam.? Assessment & Plan Assessment & Plan (1) Mild cognitive impairment of uncertain or unknown etiology: Code(s): G31.84 - Mild cognitive impairment of uncertain or unknown etiology Category: Medical (2) Alzheimer's disease with early onset: Code(s): G30.0 - Alzheimer's disease with early onset; F02.80 - Dementia in other diseases classified elsewhere, unspecified severity, without behavioral disturbance, psychotic disturbance, mood disturbance, and anxiety Category: Medical (3) Vitamin B 12 deficiency: Code(s): E53.8 - Deficiency of other specified B group vitamins Category: Medical Plan Spinal fluid analysis for dementia panel, in anticipation of starting anti- amyloid therapy with [facility] MMSE, MOCA and functional testing with VR Orders: Orders FL guided lumbar puncture LP Today F02.80 - Dementia in other diseases classified elsewhere, unspecified severity, without behavioral disturbance, psychotic disturbance, mood disturbance, and anxiety, G30.0 - Alzheimer's disease with early onset, G31.84 - Mild cognitive impairment of uncertain or unknown etiology Coding Level of Care Code New Pt Level 5 (60554) Diagnoses Mild cognitive impairment of uncertain or unknown etiology G31.84 Alzheimer's disease with early onset G30.0; F02.80 Vitamin B 12 deficiency E53.8
== END 2024-11-25 16:19 | disposition home or self-care (01) ==
LOC: HO.HSM 15:23
PROVIDERS: PCP Internal Medicine; Visit Provider Psychiatry & Neurology Neurology
DX: G30.0 Alzheimer's disease with early onset (principal); F02.80 Dementia in other diseases classified elsewhere, unspecified severity, without behavioral disturbance, psychotic disturbance, mood disturbance, and anxiety; E53.8 Deficiency of other specified B group vitamins
CPT/HCPCS: 99204

== ENCOUNTER 2024-12-17 09:18 | Day surgery (SDC) | payer OTHER, SELFPAY ==
[2024-12-17] VITALS (7 sets, daily range): BP systolic 102–124; BP diastolic 66–76; PULSE 65–71; RESP 16–18; TEMP 36.1–36.4; O2SAT 96–99; BMI 22.8
--- NOTE | ~2024-12-17 | FL_ITS ---
EXAMINATION: XR LUMBAR PUNCTURE CLINICAL INFORMATION: G30.0 - Alzheimer's disease with early onset . COMPARISON: None available. TECHNIQUE: Informed consent was obtained from the patient. Timeout was performed. Using fluoroscopic guidance, the right L3-4 interlaminar space was identified, marked, and the skin prepped and draped in sterile fashion. Skin and subcutaneous tissues were anesthetized with 1% lidocaine. Subsequently, a 20-gauge Quincke spinal needle was advanced into the thecal sac, and clear CSF was noted at the needle hub. Approximately 16 mL of clear CSF was obtained passively, and sent for laboratory analysis. The patient tolerated the procedure well. There were no immediate complications. 1 fluoroscopic spot image obtained. FLUOROSCOPY TIME: 5 seconds DOSE AREA PRODUCT: 4.3 uGy-m2 (microgray-meter squared) FL/FL guided lumbar puncture LP IMPRESSION: Successful fluoroscopically guided L3-4 interlaminar Lumbar puncture. No immediate complication. Electronically signed by: Kobe Dickey MD 12/17/2024 11:46 AM EDT
[2024-12-17 09:59] LABS: MANUAL DIFF FLAG NO
[2024-12-17 10:05] LABS: Hematocrit 35.6 % (37.0-47.0); Hemoglobin 12.1 g/dl (12.0-16.0); Imm Gran Abs Auto 0.02 X10*3/uL (0.00-0.03); Imm Gran Pct Auto 0.4 % (0.0-0.4); Lymphocytes Absolute Auto 1.5 X10*3/uL (1.2-4.9); Mean Corpuscular HGB Conc 34.0 g/dl (31.0-35.0); Mean Corpuscular Hemoglobin 30.0 pg (27.0-33.0); Mean Corpuscular Volume 88.1 fL (80.0-98.0); NRBC Abs Auto 0.000 X10*3/uL (0.0-0.012); NRBC Pct Auto 0.0 /100WBC (0.0-0.2); Platelet Count 263 X10*3/uL (160-400); Red Blood Count 4.04 X10*6/uL (4.20-5.50); White Blood Count 5.6 X10*3/uL (4.8-10.8)
[2024-12-17 10:11] LABS: INTERNATIONAL NORM RATIO 0.9 (0.9-1.1); Prothrombin Time 10.6 SEC (10.9-12.4)
[2024-12-17 10:14] LABS: Partial Thromboplastin Time 28.2 SEC (26.0-36.8)
[2024-12-17 10:20] LABS: Anion Gap 12 (12-20); Blood Urea Nitrogen 24 mg/dL (9-16); Calcium 8.7 mg/dL (8.4-10.2); Carbon Dioxide 27 mmol/L (22-29); Chloride 107 mmol/L (96-108); Creatinine Clr Calc Pharmacy 77.3; Estimated Glomerular Filt Rate > 60; Potassium 3.9 mmol/L (3.3-5.1); Sodium 142 mmol/L (135-145)
[2024-12-17 12:52] LABS: Lymphocytes CSF 0 %; Neutrophils CSF 0 %; Red Blood Cell CSF 1 MM*3; White Blood Cell CSF 0 MM*3
== END 2024-12-17 12:33 | disposition home or self-care (01) ==
PROVIDERS: Radiology Diagnostic Radiology; Student in an Organized Health Care Education/Training Program; PCP Internal Medicine; Visit Provider Psychiatry & Neurology Neurology
PROC: 009U3ZZ Drainage of Spinal Canal, Percutaneous Approach (ICD-10-PCS; CPT 62270; principal; 2024-12-17 11:00)
DX: G30.0 Alzheimer's disease with early onset (principal); F02.80 Dementia in other diseases classified elsewhere, unspecified severity, without behavioral disturbance, psychotic disturbance, mood disturbance, and anxiety; Z84.89 Family history of other specified conditions; M10.072 Idiopathic gout, left ankle and foot; M77.12 Lateral epicondylitis, left elbow; F41.0 Panic disorder [episodic paroxysmal anxiety]; F33.41 Major depressive disorder, recurrent, in partial remission; M54.31 Sciatica, right side; L50.2 Urticaria due to cold and heat; H81.311 Aural vertigo, right ear; H90.3 Sensorineural hearing loss, bilateral; M41.24 Other idiopathic scoliosis, thoracic region; D51.9 Vitamin B12 deficiency anemia, unspecified; E55.9 Vitamin D deficiency, unspecified; L80 Vitiligo; E03.9 Hypothyroidism, unspecified; Z79.899 Other long term (current) drug therapy
CPT/HCPCS: 36415; 62328; 80048; 82234; 82945; 84157; 84393; 84394; 85025; 85610; 85730; 89051; J2003

== ENCOUNTER → 2024-12-17 11:00 | Outpatient (BNV) | payer OTHER, SELFPAY | PROVIDERS: PCP Internal Medicine; Visit Provider Radiology Diagnostic Radiology | DX: G30.0 Alzheimer's disease with early onset (principal) | CPT/HCPCS: 62328 ==

== ENCOUNTER 2024-12-19 08:27 | Outpatient (AMB) | payer OTHER, SELFPAY ==
--- NOTE | 2024-12-19 08:32 | MHC.OFFVIS ---
Intake Visit Reasons: Cognitive testing Allergies No Known Allergies (No Known Allergies*) Allergy (Unverified 12/19/24 08:33) Medication List - Last Reconciled 12/19/24 by Allison Stock CNP citalopram 10 mg PO DAILY cyanocobalamin (vitamin B-12) 1,000 mcg IM QWEEK lorazepam 1 mg PO DAILY PRN HPI Comments Details: She is here today for cognitive testing with MMSE and MoCA. She had 12 years of formal education. She was currently working part-time in [place] which she has been doing for over 30 years. [facility], [facility] Medical History (Updated 11/25/24 @ 16:13 by An Sams MD) Lateral epicondylitis of left elbow Idiopathic gout of left ankle Other supraventricular tachycardia Mild cognitive impairment of uncertain or unknown etiology Panic disorder [episodic paroxysmal anxiety] Menopausal and female climacteric states Sciatica of right side Other idiopathic scoliosis, thoracic region Vitiligo Urticaria due to cold and heat Sensorineural hearing loss (SNHL), bilateral Aural vertigo, right ear Alzheimer's disease with early onset Major depressive disorder, recurrent episode, in partial remission Vitamin D deficiency Hypothyroidism Vitamin B12 deficiency anemia Surgical History (Updated 11/24/24 @ 18:04 by Patricia Luna MA) History of bilateral tubal ligation Family History (Updated 11/24/24 @ 18:07 by Patricia Luna MA) Father Alzheimers disease Mother Thyroid disease Social History Patient Tobacco Use Status: Never used Tobacco Second Hand Smoke Exposure: No Review of Systems Const Denies chills, Denies difficulty sleeping, Denies fatigue, Denies frequent falls, Denies headache(s), Denies increased appetite, Denies poor appetite and Denies weakness ENT Denies vertigo, Denies dizziness, Denies headache(s) and Denies neck pain Card Denies chest pain at rest, Denies chest pain with activity, Denies syncope, Denies leg edema, Denies palpitations, Denies dyspnea and Denies dyspnea on exertion Resp Denies dyspnea and Denies dyspnea on exertion GI Denies constipation, Denies diarrhea and Denies nausea Denies urinary frequency, Denies urinary incontinence and Denies urinary urgency Musc Denies abnormal gait, Denies back pain, Denies myalgias, Denies arthralgias, Denies neck pain, Denies numbness and Denies tingling Neuro Denies abnormal gait, Denies vertigo, Denies dizziness, Denies syncope, Denies frequent falls, Denies headache(s), Denies lack of coordination, Reports memory loss, Denies numbness, Denies restless legs, Denies seizure-like activity, Denies tingling, Denies paresthesias, Denies tremor(s) and Denies weakness Psych Reports anxiety, Denies depression, Denies auditory hallucinations, Reports memory loss and Denies visual hallucinations Endo Denies fatigue and Denies palpitations Physical Exam Neuro Other: Abnormal Neurological Findings:?MMSE 29/30, MoCA 24/30 with MIS 03/04. Mental Status: alert. Cranial Nerves: Pupils are equal, round, and reactive to light. External ocular muscles are intact. Visual ann are full, no ptosis. Face is symmetrical, no facial weakness or droop. Facial sensations are normal. Tongue protrudes in midline. Palate elevates symmetrically. Shoulder shrugging is normal. Motor Examination: Normal muscle tone, bulk and strength. No atrophy or fasciculations. No drift of the extended upper extremities. DTR 2+. Plantars are flexor. Straight Leg Raisin degrees. Sensory Exam: Normal light touch, temperature, pinprick, vibration, and joint-position sensations. Rhomberg sign is absent. Coordination: No ataxia. No titubation. Cfzsat-zq-rqyr, ggfu-thzo-cptd test, and rapid alternating movements were normal. Gait Exam: Within normal limits. Cerebellar Signs: Zmzzuc-xe-nors and ksva-zu-oigr is normal. No dysdiadochokinesia. Extrapyramidal System: No tremor, rigidity with normal facial expressions. No bradykinesia. No bradyphrenia. Normal arm swing and posture. No propulsion or retropulsion. Speech: Normal. No dysphasia or dysarthria. Assessment & Plan Assessment & Plan (1) Mild cognitive impairment of uncertain or unknown etiology: Code(s): G31.84 - Mild cognitive impairment of uncertain or unknown etiology Category: Medical (2) Alzheimer's disease with early onset: Code(s): G30.0 - Alzheimer's disease with early onset; F02.80 - Dementia in other diseases classified elsewhere, unspecified severity, without behavioral disturbance, psychotic disturbance, mood disturbance, and anxiety Category: Medical Plan She had LP with spinal fluid analysis for dementia panel on 12/17/2024, results not yet available. Follow up as previously scheduled with Dr. Sams to review results and discuss treatment options further. Coding Level of Care Code Est Pt Level 4 (16580) Diagnoses Mild cognitive impairment of uncertain or unknown etiology G31.84 Alzheimer's disease with early onset G30.0; F02.80
--- OUTSIDE RECORDS SUMMARY | 2024-12-19 08:40 | XMS_ITS | Clinical Summary ---
Author [facility] [place] [address] Care Team Providers Care Licensed Staff Mft Name Role Phone Jann Vance MD Primary Care Provider [phone] Surgical History Surgery Date Site/Laterality Comments OTHER SURGICAL HISTORY PROCEDURE: HYSTEROSCOPY, SURGICAL/ABLATION TUBAL LIGATION PROCEDURE: HISTORICAL TUBAL LIGATION OTHER SURGICAL HISTORY 02/2023 PROCEDURE: [place] ANES CARDIAC ELECTROPHYSIOL STDY W/RF ABLATION; COMMENT: cardiav ablatojliliam Medical History Medical History Date Comments SVT (supraventricular tachyc ardia) (CMS/HCC V24) DX:SVT (supraventricular tac hycardia) ([facility]); COMMENT: cardiology - [facility] cariolgy [...] 2) 12/16/2019 Colorectal Cancer Screening: Colonoscopy 04/19/2022 HIV Screening 04/19/2022 Hepatitis C Screening 04/19/2022 Social Influencers of Health Screening 04/19/2022 COVID-19 Vaccine (1 - 2023-2 5 season) 2024 Depression Screening 05/21/2024 Influenza Vaccine (#1) 2025 HIB Vaccines Aged [...] age to complete this topic Care Teams Licensed Staff Mft Relationship Specialty Start Date End Date Jann Vance MD PCP - General 12/20/17
--- OUTSIDE RECORDS SUMMARY | 2024-12-19 08:40 | XMS_ITS | Patient Health Record ---
Author Organization [facility] Address [address] [id number] Care Team Providers Care Credentialing Coordinator Name Role Phone Jann Vance Primary Care Provider [phone] Cintia Sam Unavailable [phone] Allergies No Known Allergies Results Component Value Reference Range Notes MM Digital Mammo Screening Reviewed date:11/13/2024 01:49:28 PM Interpretation: Performing Lab: Notes/Report: TSH-[id number] Reviewed date:10/29/2024 06:44:02 PM Interpretation: Performing Lab:[facility], [facility] [address] [place] [address], Phone - [phone], Director - [facility] Notes/Report: Test(s) [id number]-[id number] was developed and its performance characteristics determined by [facility]. It has not been cleared or approved by the Food and Drug Administration. TSH 2.970 0.450-4.500 uIU/mL Thyroxine (T4) Free, Direct- [id number] Reviewed date:10/29/2024 06:44:02 PM Interpretation: Performing Lab:[facility], [facility], Phone - [phone], Director - [facility] Notes/Report: Test(s) [id number]-[id number] was developed and its performance characteristics determined by [facility]. It has not been cleared or approved by the Food and Drug Administration. T4,Free(Direct) 0.76 0.82-1.77 ng/dL Vitamin [id number] Reviewed date:10/29/2024 06:44:01 PM Interpretation: Performing Lab:[facility], [address], Phone - [phone], Director - [facility] Notes/Report: Test(s) [id number] was developed and its performance characteristics determined by [facility]. It has not been cleared or approved by the Food and Drug Administration. Vitamin B12 546 747-4085 pg/mL COLOGUARD Reviewed date:08/13/2024 06:23:42 PM Interpretation:Negative Performing Lab: Notes/Report: Negative FIT DNA COLOGUARD 08/12/2024 Thyroxine (T4) Free, Direct- [id number] Reviewed date:07/29/2024 05:58:30 PM Interpretation: Performing Lab:[facility] [place], [address] [place] [address], [place], Phone - [phone], Director - [facility] Notes/Report: T4,Free(Direct) 0.78 0.82-1.77 ng/dL Urinalysis, Complete-[id number] Reviewed date:07/29/2024 05:58:30 PM Interpretation: Performing Lab:[facility] [place], [address] [place] [address], Phone - [phone], Director - [facility] Notes/Report: Specific [place] 1.020 1.005-1.030 pH 7.0 5.0-7.5 Urine-Color Yellow [...] seen /lpf Bacteria None seen None seen/Few CBC With Differential/Platel et-726808 Reviewed date:07/29/2024 05:58:30 PM Interpretation: Performing Lab:[facility] [place], [address] [place] [address], [place], Phone - [phone], Director - [facility] [place] Notes/Report: WBC 5.3 3.4-10.8 x10E3/uL RBC 4.35 [...] % Immature Grans (Abs) 0.0 0.0-0.1 x10E3/uL Vitamin D, 15-Psaffuc-045407 Reviewed date:07/29/2024 05:58:30 PM Interpretation: Performing Lab:[facility], [address] [place] [address], [place], Phone - [phone], Director - [place] Notes/Report: Vitamin D, 25-Hydroxy 63.4 30.0-100.0 ng/mL Vitamin D deficiency has been defined by the [place] of Medicine and an Endocrine Society practice guideline as a level of serum 25-OH vitamin D less than 20 ng/mL (1,2). The Endocrine Society went on to further define vitamin D insufficiency as a level between 21 and 29 ng/mL (2). 1. IOM ([place] of Medicine). 2010. Dietary reference intakes for calcium and D. [place]: The National Academies Press. 2. Gwen MF, Roger NC, Nicki PROCTOR, et al. Evaluation, treatment, and prevention of vitamin D deficiency: an Endocrine Society clinical practice guideline. JCEM. 2010; 96(7):1911-30. Comp. Metabolic Panel (14)-3 51300 Reviewed date:07/29/2024 05:58:30 PM Interpretation: Performing Lab:[facility] [place], [address] [facility], Phone - [phone], Director - [facility] Notes/Report: Glucose 93 70-99 mg/dL BUN 18 [...] 0-40 IU/L ALT (SGPT) 12 0-32 IU/L LP+Non-HDL Cholesterol-00626 5 Reviewed date:07/29/2024 05:58:30 PM Interpretation: Performing Lab:[facility] [place], [address] [place] [address], Phone - [phone], Director - [facility] Notes/Report: Cholesterol, Total 183 100-199 mg/dL Triglycerides 65 0-149 mg/dL HDL Cholesterol 68 >39 mg/dL VLDL Cholesterol [place] 12 5-40 mg/dL LDL Chol Calc ([facility]) 103 0-99 mg/dL Non-HDL Cholesterol 115 0-129 mg/dL HCV Antibody-[id number] Reviewed date:07/29/2024 05:58:30 PM Interpretation: Performing Lab:[facility] [place], [address] [facility], Phone - [phone], Director - [facility] Notes/Report: Hep C Virus Ab Non Reactive Non Reactive HCV antibody alone does not differentiate between previously resolved infection and active infection. Equivocal and Reactive HCV antibody results should be followed up with an HCV RNA test to support the diagnosis of active HCV infection. MM Digital Mammo Screening Reviewed date:11/19/2024 09:19:21 PM Interpretation: Performing Lab: Notes/Report: CBC With Differential/Platel et-107200 Reviewed date:02/15/2024 12:36:07 PM Interpretation: Performing Lab:[facility], [address] [facility], Phone - [phone], Director - [place] Notes/Report: WBC 6.6 3.4-10.8 [...] % Immature Grans (Abs) 0.0 0.0-0.1 x10E3/uL Comp. Metabolic Panel (14)-3 30411 Reviewed date:02/15/2024 12:36:07 PM Interpretation: Performing Lab:[facility], [address] [facility], Phone - [phone], Director - [place] Notes/Report: Glucose 85 70-99 [...] 0-40 IU/L ALT (SGPT) 12 0-32 IU/L TSH reflex to N6O-[id number] Reviewed date:02/15/2024 12:36:07 PM Interpretation: Performing Lab:[facility], [address] [facility], [place], Phone - [phone], Director - [place] Notes/Report: TSH 2.200 0.450-4.500 uIU/mL EKG Reviewed date:02/15/2024 12:36:07 PM Interpretation: Performing Lab: Notes/Report: ECGDiastolicBP 0 ECGHr 74 ECGPRInterval 182 ECGPWaveAxis 58 ECGQRSDuration 94 ECGQrsWaveAxis 19 ECGQTcInterval 398 ECGQTInterval 374 ECGSystolicBP 0 ECGTWaveAxis 50 RR_DiastolicBP 0 RR_MaxRRInterval 0 RR_MeanHR 0 RR_MeanRRInterval 0 RR_MinRRInterval 0 RR_NumBeats 0 RR_NumNormalBeats 0 RR_SystolicBP 0 MR Brain Reviewed date:10/29/2024 06:44:02 PM Interpretation: [...] Leavitt M.D. Reviewed and Electronically Signed by: Angelica Leavitt M.D. Phosphorylated Tau 217 (pTau -217) Reviewed date:10/29/2024 06:44:02 PM Interpretation: Performing Lab:[facility], [address], Phone - [phone], Director - [facility] Notes/Report: Test(s) [id number]-[id number] was developed and its performance characteristics determined by [facility]. It has not been cleared or approved by the Food and Drug Administration. p-pbq348 0.39 0.00-0.18 pg/mL Clinical cutoff value was established using samples from a patient cohort characterized with amyloid PET data. A p-gnt815 value of >0.18 is a reported surrogate marker for beta amyloid pathology, and can be used to facilitate biological identification of Alzheimer's disease (1). p-fgd153 has also been used in clinical trials to monitor patients on anti-amyloid therapy (2,3). Test performed by [employer] chemiluminescent enzyme immunoassay (CLEIA). Values obtained with different methods cannot be used interchangeably. The validated limit of quantification is 0.06 pg/mL. Assay detection limit is 0.03 pg/mL. Footnotes 1. Ezra Negrete, et al. Diagnostic Accuracy of a Plasma Phosphorylated Tau 217 Immunoassay for Alzheimer Disease Pathology. AMBER neurology (2023). 2. Ezra Negrete, et al. Differential roles of A42/40, p-tes417 and p-him086 for Alzheimer's trial selection and disease monitoring. Nature medicine 28.12 (2021): 6090-6752. 3. Roque LAMBERT, Lindsay M, Raquel SC, et al. Association of [place] Treatment With Exploratory Plasma Biomarkers in Early Symptomatic Alzheimer Disease: A Secondary Analysis of the TRAILBLAZER-ALZ Randomized Clinical Trial . AMBER Neurol. 2021;79(12):7027-3791. [facility] Informed Consent Fo Reviewed date:10/29/2024 06:44:02 PM Interpretation: Performing Lab:[facility], [address], [address], [place], Phone - [phone], Director - [facility] Notes/Report: [facility] Informed Consent Form [facility] Informed Consent Form 02 Please Fax back to [phone]. Many states require laboratories to have documentation [...] of the sample when testing is complete. [facility] did not receive any documentation of informed consent for above mentioned patient and ordered tests. Please check the statement applicable to this patient and sign below so that [email or web address] may release the results for this patient. . [] I authorize and confirm patient consent for the above mentioned genetic test(s). . [] I have provided appropriate informed consent for the above mentioned test(s) and documentation of this consent is maintained in the patient record. . . Health care provider signature D ate . Printed name . Fax back to [facility] at [phone] . [facility] APOE Alzheimer's Risk-448407 Reviewed date:10/29/2024 06:44:02 PM Interpretation: Performing Lab:[facility], [address], [place], Phone - [phone], Director - [facility] Notes/Report: Test(s) 243756-o-[id number] was developed and its performance characteristics determined by [facility]. It has not been cleared or approved by the Food and Drug Administration. Methodology: Patient DNA is assayed for the APOE genotype by PCR amplification of a specific region in exon 4 of the APOE gene followed by digestion with restriction enzyme Coating Supervisor I and separation of fragments by polyacrylamide [...] the APOE4 variant and by approximately 10 hq46-aowe for individuals with two copies of this [...] developed and its performance characteristics determined by [employer]. It has not been cleared or approved by the Food and Drug Administration. The FDA has determined that such clearance or approval is not necessary. REFERENCES Deanne Butterfield et al. Sex modifies the APOE-related risk of developing Alzheimer disease. Annal Neurol 2014;75(4):563-573 Kristofer CHAVEZ. Alzheimer Disease Overview. [employer] ([employer] Chad GUERRERO et al., editors. [facility]: [facility], [place], [place]. Last revised 2014. Miller TENA et al. Genetic counseling and testing for Alzheimer disease: Joint practice guidelines of the [place] College [employer] Medical Genetics and the National Society of Genetic Counselors. Rosio in Med 2011;13(1)597-603. Greg NAIK. Apolipoprotein E: Implications for AD neurobiology, epidemiology and risk assessment. Neurobiology of Aging 2011;32:778-790 MM Digital Mammo Screening Reviewed date:11/19/2024 09:19:21 [...] (Negative) Lay letter mailed to patient WSN: [id number] Ordering Physician: Jann Vance Dictated By: Wendy Riggs MD Reason For Referral Reason faxed Diagnosis 1 Alzheimer's disease with early onset (G30.0) Referral Organization [facility] Referring Provider First Name Jann Referring Provider Last Name Rajiv Referring Provider Speciality [facility] Referred Provider Brendan Fletcher Referred Provider Specialty Neurology General Notes Graciela WILSON 10/2024 01:01:35 PM >[facility] 10/24/2024 01:01:42 PM >To Berenice for appt., [facility] 10/28/2024 08:53:31 AM >Received fax, patient booked 11/25/[address] Sams[address] [facility] 10/28/2024 04:41:43 PM >Message sent to patient through portal of appt. Referral Priority Urgent Referral Appointment Date 11/25/2024 Reason faxed Diagnosis 1 Alzheimer's disease with early onset (G30.0) Referral Organization Jann BR[facility] Referring Provider First Name Jann Referring Provider Last Name Rajiv [facility] Referred Provider Brendan Fletcher Referred Provider Specialty Neurology General Notes Graciela WILSON 10/19 04:49:32 PM >faxed Referral Priority Routine Medications Medication SIG (Take, Route, Frequency, Duration) Notes Start Date End Date Status Citalopram Hydrobromide 10 MG TAKE 1 TABLET BY MOUTH EVERY DAY FOR 30 DAYS; Duration: 90 Active LORazepam 1 MG 1 Tablet Orally Once a day 08/05/2024 Active Cyanocobalamin 1000 MCG 1 tablet Orally Once a day; Duration: 90 days 10/29/2024 10/24/2025 Active Immunizations Vaccine Route Administration Date Status Comme nts Td (adult) preservative free Unknown 08/18/2002 Administered Td (adult) preservative free IM Intramuscular 07/05/2021 Administered Hstvbothc-3640-27 Afluria-Single IM Intramuscular 03/06/2018 Administered OJGPD-28-Fbevpg Vaccine Unknown 08/19/2020 Administered SWMRO-38-Kebxub Vaccine Unknown 09/10/2020 Administered ABZWI-95-Qtokfj Vaccine Unknown 05/18/2021 Administered *Tdap Unknown 01/30/2011 Administered *Influenza-Quadrivalent IM Intramuscular 04/17/2023 Admini stered *Influenza-Fluzone IM Intramuscular 03/13/2024 Administere d *Wwmggbgcj-Tvjk-FA IM Intramuscular 04/01/2020 Administere d *Surqgaaal-Uuar-SQ IM Intramuscular 04/20/2021 Administere d *Qsixbennk-Ildn-FD IM Intramuscular 03/28/2022 Administere d Social History [...] W/U Status Risk Notes Problem Pernicious anemia (57407211) Vitamin B12 deficiency anemia due to intrinsic factor deficiency (D51.0) Active confirmed Problem Hypothyroidism (41892943) Hypothyroidism, unspecified (E03.9) Active confirmed Problem Vitamin D deficiency (27077812) Vitamin D deficiency, unspecified (E55.9) Active confirmed Problem Recurrent major depression in remission (96793303) Major depressive disorder, recurrent, in partial remission (F33.41) Active confirmed Problem Alzheimer's disease with early onset (204173346) Alzheimer's disease with early onset (G30.0) Active confirmed Problem 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, right ear (H81.311) Active confirmed Problem Sensorineural hearing loss of bilateral ears (disorder) (307051411) Sensorineural hearing loss, bilateral (H90.3) Active confirmed Problem Sensorineural hearing loss of right ear with normal hearing on left side (disorder) (4219511241) Sensorineural hearing loss, unilateral, right ear, with unrestricted hearing on the contralateral side (H90.41) Active confirmed Problem Urticaria caused by cold and heat (749896087) 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) Active confirmed Problem Vitiligo (61997115) Vitiligo (L80) Active confirmed Problem Idiopathic scoliosis of thoracic spine (disorder) (604632873) Other idiopathic scoliosis, thoracic region (M41.24) Active confirmed Problem Right side sciatica (644028184053782) Sciatica, right side (M54.31) Active confirmed Problem Menopause (153693974) Menopausal and female climacteric states (N95.1) Active confirmed Problem Panic disorder (409032991) Panic disorder [episodic paroxysmal anxiety] (F41.0) Active confirmed Problem Mild cognitive disorder (394986235) Mild cognitive impairment of uncertain or unknown etiology (G31.84) Active confirmed Problem Supraventricular tachycardia (disorder) (0735521) Other supraventricular tachycardia (I47.19) Active confirmed Problem Moderate major depression, single episode (03288712) Major depressive disorder, single episode, moderate (F32.1) Inactive confirmed Problem Major depression single episode, in partial remission (06022857) Major depressive disorder, single episode, in partial [...] Location Date Provider Diagnosis Jann Vance MD [address] [id number] 01/24/2024 Jann Vance Major depressive disorder, recurrent, in partial remission F33.41 ; Panic disorder [episodic paroxysmal anxiety] F41.0 and Other supraventricular tachycardia I47.19 Jann Vance MD [address] [id number] 02/14/2024 Cintia Sam Palpitations R00.2 ; Major depressive disorder, recurrent, in partial remission F33.41 ; Other supraventricular tachycardia I47.19 and Panic disorder [episodic paroxysmal anxiety] F41.0 Jann Vance MD [address] [id number] 03/13/2024 Cintia Sam Palpitations R00.2 ; Major depressive disorder, recurrent, in partial remission F33.41 ; Other supraventricular tachycardia I47.19 ; Panic disorder [episodic paroxysmal anxiety] F41.0 and Encounter for immunization Z23 Jann Vance MD [address] [id number] 07/25/2024 Jann Vance Major depressive disorder, recurrent, [...] other viral diseases Z11.59 Jann Vance MD [address] [id number] 09/24/2024 Jann Vance Mild cognitive impairment of uncertain or unknown etiology G31.84 and Hypothyroidism, unspecified E03.9 Jann Vance MD [address] [id number] 11/03/2024 Jann Vance Alzheimer's disease with early onset G30.0 and Vitamin B12 deficiency anemia due to intrinsic factor deficiency D51.0 Jann Vance MD [address] [id number] 11/12/2024 Jann Vance Vitamin B12 deficien cy anemia due to intrinsic factor deficiency D51.0 Jann Vance MD [address] [id number] 11/19/2024 Jann Vance Vitamin B12 deficien cy anemia due to intrinsic factor deficiency D51.0 Jann Vance MD [address] [id number] 11/26/2024 Jann Vance Vitamin B12 deficien cy anemia due to intrinsic factor deficiency D51.0 Jann Vance MD [address] [id number] 12/03/2024 Jann Vance Vitamin B12 deficien cy anemia due to intrinsic factor deficiency D51.0 Jann Vance MD [address] [id number] 01/09/2024 Jann Vance MD [address] [id number] 01/09/2024 Jann Vance Panic disorder [epis odic paroxysmal anxiety] F41.0 Jann Vance MD [address] [id number] 01/10/2024 Jann Vance MD [address] [facility] [address] [place] [id number] 03/13/2024 Jann Vance MD [address] [id number] 07/29/2024 Jann Vance Hypothyroidism, unspecified E03.9 Jann Vance MD [address] [id number] 08/04/2024 Jann Vance MD [address] [id number] 10/24/2024 Jann Vance MD [address] [id number] 10/24/2024 Jann Vance Alzheimer's disease with early onset G30.0 Jann Vance MD [address] [id number] 10/29/2024 Jann Vance MD [address] [id number] 08/05/2024 Jann Vance Panic disorder [epis odic paroxysmal anxiety] F41.0 Assessments Encounter Date Diagnosis (ICD Code) Assessment Notes Treatment Notes Treatment Clinical Notes Section Notes 01/09/2024 Panic disorder [episodic paroxysmal anxiety] (ICD-10 - F41.0) 07/29/2024 Hypothyroidism, unspecified (ICD-10 - E03.9) 10/24/2024 Alzheimer's disease with early onset (ICD-10 [...] further assessment and treatment of her Alzheimer's. 12/03/2024 Vitamin B12 deficiency anemia due to intrinsic factor deficiency (ICD-10 - D51.0) 11/26/2024 Vitamin B12 deficiency anemia due to intrinsic factor deficiency (ICD-10 - D51.0) 11/19/2024 Vitamin B12 deficiency anemia due to intrinsic factor deficiency (ICD-10 - D51.0) 11/12/2024 Vitamin B12 deficiency anemia due to intrinsic factor deficiency (ICD-10 - D51.0) 02/14/2024 Palpitations (ICD-10 - R00.2) EKG completed [...] provider and patient may require urgent evaluation 03/13/2024 Palpitations (ICD-10 - R00.2) Holter monitor reviewed and NSR noted with intermittent episodes of Sinus Tachycardia. Previous in office EKG also reviewed again which did reveal normal sinus rhythm. Discussed with patient that there is no further workup warranted unless symptoms return or new symptoms of concern began, which patient will follow up with office should this occur 09/24/2024 Mild cognitive impairment of uncertain or unknown etiology (ICD-10 - G31.84) She still having some word finding difficulty and her [place] cognitive assessment test suggest some mild impairment. She does not have a history of learning disability and so this is probably early mild cognitive impairment. Can evaluate for reversible causes as well as structural disease as well as infiltrative disease. 08/05/2024 Panic disorder [episodic paroxysmal anxiety] (ICD-10 - F41.0) 07/25/2024 Major depressive disorder, recurrent, in partial remission (ICD-10 - F33.41) She feels she is doing okay. She is having a good winter so far without any significant depression compared to her prior episodes. Continue current medical therapy and supportive care 07/25/2024 Encounter for general adult medical examination without abnormal findings (ICD-10 - Z00.00) General healthcare up-to-date. Check routine labs 01/24/2024 Major depressive disorder, recurrent, in partial remission (ICD-10 - F33.41) She feels she is doing okay with current medical therapy. She does not feel that she needs to increase medical therapy. She has not had any panic attacks. Continue current therapy 01/24/2024 Panic disorder [episodic paroxysmal anxiety] (ICD-10 - F41.0) Controlled with current medical therapy without any acute flares. 01/24/2024 Other supraventricular tachycardia (ICD-10 - I47.19) Symptomatically stable without any recurrent episodes. 07/25/2024 Panic disorder [episodic paroxysmal anxiety] (ICD-10 - F41.0) As above. She is feels she is doing well this winter. Continue current medical therapy. 02/14/2024 Other supraventricular tachycardia (ICD-10 - I47.19) [...] labs to verify stable and adequate control. 02/14/2024 Major depressive disorder, recurrent, in partial remission (ICD-10 - F33.41) Stable and patient to continue current medication regimen as patient states she feels well-controlled 02/14/2024 Panic disorder [episodic paroxysmal anxiety] (ICD-10 - F41.0) Stable and patient feels well-controlled on current medication regimen. She states that her anxiety has been well-controlled 03/13/2024 Other supraventricular tachycardia (ICD-10 - I47.19) Symptomatically stable without any recurrent episodes. Patient does have an underlying history of SVT and previous ablation and patient aware that if symptoms return or new symptoms of concern began then she should follow-up in office for further cardiac evaluation 07/25/2024 Other supraventricular tachycardia (ICD-10 - I47.19) Symptomatically stable without any recurrent episodes after successful ablation 07/25/2024 Mild cognitive impairment of uncertain or unknown etiology (ICD-10 - G31.84) She reports she had an episode of where she became slightly disoriented. She was driving and did not know which way to go. She had recovery of cognitive function within 30 seconds. At this point can recheck [place] cognitive assessment test and if that is normal then this may be a senior moment . Otherwise further evaluation may be necessary. 03/13/2024 Panic disorder [episodic paroxysmal anxiety] (ICD-10 - F41.0) Stable and patient feels well-controlled on current medication regimen. She states that her anxiety has been well-controlled since last visit 03/13/2024 Encounter for immunization (ICD-10 - Z23) Patient agreeable to receive her flu vaccine in office today 07/25/2024 Sensorineural hearing loss, unilateral, right ear, with unrestricted hearing on the contralateral side (ICD-10 - H90.41) Stable and unchanged 07/25/2024 Vitamin D deficiency, unspecified (ICD-10 - [...] Test Name Order Date 25OH VITAMIN D 07/17/2022 25OH VITAMIN D 06/30/2020 COMPLETE CBC WITH DIFF 06/30/2020 COMPLETE CBC WITH DIFF 07/17/2022 COMPLETE URINALYSIS 07/17/2022 COMPLETE URINALYSIS 07/24/2023 COMPLETE URINALYSIS 06/30/2020 COMPLETE URINALYSIS 05/23/2018 COMPREHENSIVE METABOLIC PANEL 06/30/2020 COMPREHENSIVE METABOLIC PANEL [...] 7 DAYS, INTERPRETATION 1 Thyroxine (T4) Free, Direct-948968 07/29 TSH-372976 07/29/2024 Anti-TPO Ab (RDL)-016896 07/29/2024 Future Test Test Name Order Date Tamra Screening Digital 10/19/2020 CBC 06/21/2022 COMPREHENSIVE METABOLIC PANEL 06/21/2022 HEPATITIS C VIRUS SCREEN 06/21/2022 LIPID PROFILE 06/21/2022 URINALYSIS 06/21/2022 VITAMIN D, 25-HYDROXY 06/21/2022 Next Appt Details Provider Name:Jann Vance , 02/12/2025 10:15:00 AM, [address] [place] [address], [phone], Provider Name:Jann Vance , 04/28/2025 09:30:00 AM, [address] [place] [address], [phone], Provider Name:Jann Vance , 08/03/2025 08:30:00 AM, [facility] [address], [address] [address], [place], [place], [id number], Insurance Providers Payer Name Payer Address Payer Phone Subscriber Number Group Number Insured Name Patient Relationship to Insured Coverage Start Date Coverage End Date [facility] [address] [facility] [address] [place] [phone] [id number] Landy Gomez Self - patient is the insured Medications Administered Medication Instructions Date of Administration Dosage Notes Cyanocobalamin 11/12/2024 1 mL Cyanocobalamin 11/19/2024 1 mL Cyanocobalamin 11/26/2024 1 mL manufactur er life star Cyanocobalamin 12/03/2024 1 mL LIFE STAR Medical (General) History Medical History History ICD [...]
== END 2024-12-19 09:04 | disposition home or self-care (01) ==
LOC: HO.HSM 08:27
PROVIDERS: PCP Internal Medicine; Visit Provider Registered Nurse
DX: G30.0 Alzheimer's disease with early onset (principal); F02.80 Dementia in other diseases classified elsewhere, unspecified severity, without behavioral disturbance, psychotic disturbance, mood disturbance, and anxiety
CPT/HCPCS: 99214

== ENCOUNTER 2025-02-04 09:10 | Outpatient (AMB) | payer OTHER, SELFPAY ==
--- OUTSIDE RECORDS SUMMARY | 2024-11-20 04:45 | XMS_ITS ---
Author Organization Jann Vance MD Address [address] [phone] Care Team Providers Care Department Secretary Name Role Phone Jann Vance Primary Care Provider [phone] REASON FOR VISIT b12 injection Encounters Encounter Location Date Provider Diagnosis Jann Vance MD [address] [place] [address] [place] [phone] 11/20/2024 Jann Vance Plan Of Treatment Next Appt Details Provider Name:Jann Vance , 02/12/2025 10:15:00 AM, [address] [place] [address], [phone], Provider Name:Jann Vance , 04/28/2025 09:30:00 AM, [address] [place] [address], [phone], Provider Name:Jann Vance , 08/03/2025 08:30:00 AM, [address] [place] [address], [phone], Progress Notes * Jessica DAVILAB:0 1970 (54 yo F)Acc No.[id number]:11/20/2024 Progress Note Patient: Geeta MULLIGAN Landy BARRY Provider: Greer Vance MD :1970 A ge:53 Y S ex:Female Date:11/20/2024 Address:[address], [place], [phone] Subjective: * Chief Complaints: * 1 [...] Electronic signature of Nora Vance MD on 02/04/2025 at 10:45 AM EDT Sign off status: Pending * Provider: Greer Vance MD Date: 0 11/20/2024 Generated for Tiki merino/Teresa/Geitting on: 0 02/04/2025 10:45 AM EDT
--- NOTE | 2025-02-04 09:24 | A.OFFVIS_ITS ---
Intake Visit Reasons: ? AD Allergies No Known Allergies (No Known Allergies*) Allergy (Unverified 12/19/24 08:33) HPI Comments Details: Feels lost in the morning and takes a while to clear her head. 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 Forgets some things. Forgets some appointments. Uses wrong words with the same beginning. She is a 53-year-old woman with a history of anxiety, depression and panic attacks who comes in because of concerns of memory decline over the last year. She feels she has short-term memory problems and difficulty expressing herself because she uses wrong words and is having trouble with name retrieval. She may repeat herself occasionally. She drive safely but had 1 momentary spacing out while driving where she felt disoriented and had to be reminded as to where she was. She has a strong family history of early-onset dementia. Her father developed dementia in his 50s. Paternal cousin developed dementia in the 40s and at 54. Her paternal grandfather also had dementia. She has had 2 normal MRIs of the brain in 04/12 and on 09/29/2024 which were unremarkable except for stable left pontomedullary junction calcification or hemosiderin deposit. Lab work has shown a B12 deficiency and she is currently getting weekly B12 injections subcutaneously. Her serum F p-tau was elevated at 0.39 with the upper limit being 0.18. Her ApoEl genotype was E3 E3. CSF A-beta 42 peptide(A-beta 42) and total tau (T-tau) proteins, reflected in a reduced A-beta 42 to T-tau Index (ATI). The level of phospho-tau (P-tau) was also elevated. These results are consistent with a diagnosis of Alzheimer's disease (AD). 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, recurrent episode, in partial remission Vitamin D deficiency Hypothyroidism Vitamin B12 deficiency anemia Surgical History (Updated 11/24/24 @ 18:04 by Patricia Luna MA) History of bilateral tubal ligation Family History (Updated 11/24/24 @ 18:07 by Patricia Luna MA) Father Alzheimers disease Mother Thyroid disease Social History Patient Tobacco Use Status: Never used Tobacco Second Hand Smoke Exposure: No Review of Systems Const Details: Sleep Difficulty getting to sleep?denies.?Difficulty maintaining sleep?denies?.?Urge to move legs?denies.?Teeth grinding?denies.?Shouting or Kicking during sleep ?denies.?Abnormal behavior during sleep?denies.?Excessive sleep?denies.?Snoring ?denies.?Daytime sleepiness?denies. ? General/Constitutional Change in appetite?denies.?Chills?denies.?Fatigue?denies.?Fever?denies.?Weight gain?yes.?Weight loss?denies. ? Ophthalmologic Blurred vision?denies.?Diminished visual acuity?denies. ? ENT Stuffiness?denies.?Decreased hearing?yes.?Dry mouth?denies.?Ear pain?denies.? Nosebleed?denies.?Ringing in the ears?yes.?Sinus pain?denies.?Sore throat ?denies.?Swollen glands?denies. ? Endocrine Cold intolerance?denies.?Excessive thirst?denies.?Frequent urination?denies.? Heat intolerance?denies. ? Respiratory Shortness of breath?denies.?Chest pain?denies.?Cough?denies. ? Breast Breast lump?denies.?Nipple discharge?denies. ? Cardiovascular Chest pain at rest?denies.?Chest pain with exertion?denies.?Claudication ?denies.?Dizziness?denies.?Fluid accumulation in the legs?denies.?Irregular heartbeat?denies.?Palpitations?denies. ? Gastrointestinal Abdominal pain?denies.?Constipation?denies.?Diarrhea?denies.?Difficulty s wallowing?denies.?Heartburn?denies.?Nausea?denies.?Rectal bleeding?denies. ? Hematology Easy bruising?denies.?Prolonged bleeding?denies. ? Genitourinary Frequent urination?denies.?Urgency?denies.?Incontinence?denies.?Erectile Dysfunction?denies. ? Musculoskeletal Neck pain?denies.?Back pain?denies.?Muscle aches?denies.?Painful joints ?denies.?Sciatica?denies.?Weakness?denies. ? Podiatric Difficulty walking?denies.?Foot numbness?denies. ? Neurologic Difficulty swallowing?denies.?Balance difficulty?denies.?Coordination?normal.?D ifficulty speaking?denies.?Dizziness?vertigo.?Fainting?denies.?Gait abnormality ?denies.?Headache?denies.?Loss of strength?denies.?Loss of use of extremity ?denies.?Low back pain?denies.?Memory loss?yes.?Seizures?denies.?Tics?denies.? Tingling/Numbness?denies.?Transient loss of vision?denies.?Tremor?denies. ? Psychiatric Anxiety?yes.?Auditory/visual hallucinations?denies.?Delusions?denies.?Depressed mood?yes.?Stressors?denies.?Substance abuse?denies.?Suicidal thoughts?denies. Physical Exam Vital Signs: 65inches. 135lbs, Normotensive Neuro Other: Abnormal Neurological Findings:?MMSE 29/30, MoCA 24/30 with MIS 10/15. Mental Status: alert. Cranial Nerves: Pupils are equal, round, and reactive to light. External ocular muscles are intact. Visual ann are full, no ptosis. Face is symmetrical, no facial weakness or droop. Facial sensations are normal. Tongue protrudes in midline. Palate elevates symmetrically. Shoulder shrugging is normal. Motor Examination: Normal muscle tone, bulk and strength. No atrophy or fasciculations. No drift of the extended upper extremities. DTR 2+. Plantars are flexor. Straight Leg Raisin degrees. Sensory Exam: Normal light touch, temperature, pinprick, vibration, and joint- position sensations. Rhomberg sign is absent. Coordination: No ataxia. No titubation. Bdgoem-jj-txmd, hzvv-dpid-zzsc test, and rapid alternating movements were normal. Gait Exam: Within normal limits. Cerebellar Signs: Fpmlfq-us-awzs and epsn-lh-irod is normal. No dysdiadochokinesia. Extrapyramidal System: No tremor, rigidity with normal facial expressions. No bradykinesia. No bradyphrenia. Normal arm swing and posture. No propulsion or retropulsion. Speech: Normal. No dysphasia or dysarthria. Results Reviewed Results Reviewed: CSF analysis: This analysis detected levels of CSF A-beta 42 peptide(A-beta 42) and total tau (T-tau) proteins, reflected in a reducedA-beta 42 to T-tau Index (ATI). The level of phospho-tau (P-tau) wasalso elevated. These results are consistent with a diagnosis ofAlzheimer's disease (AD). Assessment & Plan Assessment & Plan (1) Alzheimer's disease with early onset: Comment: This analysis detected levels of CSF A-beta 42 peptide (A-beta 42) and total tau (T-tau) proteins, reflected in a reduced A-beta 42 to T-tau Index (ATI). The level of phospho-tau (P-tau) was also elevated. These results are consistent with a diagnosis of Alzheimer's disease (AD). Code(s): G30.0 - Alzheimer's disease with early onset; F02.80 - Dementia in other diseases classified elsewhere, unspecified severity, without behavioral distu rbance, psychotic disturbance, mood disturbance, and anxiety Category: Medical (2) Mild cognitive impairment of uncertain or unknown etiology: Code(s): G31.84 - Mild cognitive impairment of uncertain or unknown etiology Category: Medical Plan: Amyloid PET scan prior to starting Kisunla. Plan She had LP with spinal fluid analysis for dementia panel on 12/17/2024, are consistent with AD. Orders: Orders PET Brain beta amyloid 3 Weeks F02.80 - Dementia in other diseases classified elsewhere, unspecified severity, without behavioral disturbance, psychotic disturbance, mood disturbance, and anxiety, G30.0 - Alzheimer's disease with early onset Medications: New donanemab-azbt (Kisunla) administer as dose 4 and thereafter 1,400 mg (80 mL) IV Q4W Coding Level of Care Code Est Pt Level 5 (29092) Diagnoses Alzheimer's disease with early onset G30.0; F02.80 Mild cognitive impairment of uncertain or unknown etiology G31.84
--- OUTSIDE RECORDS SUMMARY | 2025-02-04 10:45 | XMS_ITS | Clinical Summary ---
[facility] [place] [address] Care Team Providers Care Director Of Recruitment Name Role Phone Jann Vance MD Primary Care Provider [phone] Surgical History Surgery Date Site/Laterality Comments OTHER SURGICAL HISTORY PROCEDURE: HYSTEROSCOPY, SURGICAL/ABLATION TUBAL LIGATION PROCEDURE: HISTORICAL TUBAL LIGATION OTHER SURGICAL HISTORY 02/2023 PROCEDURE: OR ANES CARDIAC ELECTROPHYSIOL STDY W/RF ABLATION; COMMENT: cardiav ablatojliliam Medical History Medical History Date Comments SVT (supraventricular tachyc ardia) (CMS/HCC V24) DX:SVT (supraventricular tac hycardia) ([facility]); COMMENT: cardiology - [facility] cariolgy [...] 04/19/2022 Social Influencers of Health Screening 04/19/2022 Depression Screening 05/21/2024 COVID-19 Vaccine (1 - 2023-2 5 season) 2025 Influenza Vaccine (#1) 2025 HIB Vaccines Aged [...] age to complete this topic Care Teams Director Of Recruitment Relationship Specialty Start Date End Date Jann Vance MD PCP - General 12/20/17
--- OUTSIDE RECORDS SUMMARY | 2025-02-04 10:46 | XMS_ITS | Patient Health Record ---
Author Organization Jann Vance MD Address [address] [place], [place] [id number] Care Team Providers Care Accounts Payable Technician Name Role Phone Jann Vance Primary Care Provider Sam, Cintia Unavailable [phone] Allergies No Known Allergies Results Component Value Reference Range Notes Esoterix Informed Consent Fo Reviewed date:10/29/2024 06:44:02 PM Interpretation: Performing Lab:[facility] [address], [address], [place], Phone - [phone], Director - [facility] Notes/Report: [facility]oter[employer] Informed Consent Form Es[employer] Informed Consent Form 02 Please Fax back to [phone]. Many states require laboratories to have documentation [...] of the sample when testing is complete. [facility] did not receive any documentation of informed consent for above mentioned patient and ordered tests. Please check the statement applicable to this patient and sign below so that [facility] the results [facility] this patient. . [] I authorize and confirm patient consent for the above mentioned genetic test(s). . [] I have provided appropriate informed consent for the above mentioned test(s) and documentation of this consent is maintained in the patient record. . . Health care provider signature D ate . Printed name . Fax back to [facility] at [phone] . [facility] EKG Reviewed date:02/15/2024 12:36:07 PM Interpretation: Performing Lab: Notes/Report: ECGDiastolicBP 0 ECGHr 74 ECGPRInterval 182 ECGPWaveAxis 58 ECGQRSDuration 94 ECGQrsWaveAxis 19 ECGQTcInterval 398 ECGQTInterval 374 ECGSystolicBP 0 ECGTWaveAxis 50 RR_DiastolicBP 0 RR_MaxRRInterval 0 RR_MeanHR 0 RR_MeanRRInterval 0 RR_MinRRInterval 0 RR_NumBeats 0 RR_NumNormalBeats 0 RR_SystolicBP 0 CBC With Differential/Platel et-[id number] Reviewed date:02/15/2024 12:36:07 PM Interpretation: Performing Lab:[facility], [place], Phone - [phone], Director - [place] Notes/Report: WBC 6.6 3.4-10.8 [...] 0.0 0.0-0.1 x10E3/uL Comp. Metabolic Panel (14)-3 54294 Reviewed date:02/15/2024 12:36:07 PM Interpretation: Performing Lab:[facility], [address] [place] [address], Phone - [phone], Director - MDJodry Notes/Report: Glucose 85 70-99 mg/dL BUN 18 [...] (SGPT) 12 0-32 IU/L TSH reflex to [id number] Reviewed date:02/15/2024 12:36:07 PM Interpretation: Performing Lab:[facility], [address] [place] [address], Phone - [phone], Director - MDJodry Notes/Report: TSH 2.200 0.450-4.500 uIU/mL Urinalysis, Complete-[id number] Reviewed date:07/29/2024 05:58:30 PM Interpretation: Performing Lab:Alexis Pereyra [address] [place] [address], Phone - [phone], Director - MDJodry Notes/Report: Specific Billings 1.020 1.005-1.030 pH 7.0 5.0-7.5 Urine-Color Yellow [...] seen /lpf Bacteria None seen None seen/Few MM Digital Mammo Screening Reviewed date:11/19/2024 09:19:21 [...] (Negative) Lay letter mailed to patient WSN: [id number] Ordering Physician: Jann Vance Dictated By: Wendy Riggs MD Vitamin [id number] Reviewed date:10/29/2024 06:44:01 PM Interpretation: Performing Lab:[facility], [employer] [address], Phone - [phone], Director - [facility] Notes/Report: Test(s) 917058-d-dtk621 was developed and its performance characteristics determined by [employer]. It has not been cleared or approved by the Food and Drug Administration. Vitamin B12 723 328-5398 pg/mL Thyroxine (T4) Free, Direct- 068479 Reviewed date:10/29/2024 06:44:02 PM Interpretation: Performing Lab:[facility], [address], Phone - [phone], Director - [facility] Notes/Report: Test(s) 330511-u-edg339 was developed and its performance characteristics determined by [employer]. It has not been cleared or approved by the Food and Drug Administration. T4,Free(Direct) 0.76 0.82-1.77 ng/dL TSH-672878 Reviewed date:10/29/2024 06:44:02 PM Interpretation: Performing Lab:[facility], [employer] [place] [address], [place], Phone - [phone], Director - [facility] Notes/Report: Test(s) 704116-f-svo579 was developed and its performance characteristics determined by [employer]. It has not been cleared or approved by the Food and Drug Administration. TSH 2.970 0.450-4.500 uIU/mL APOE Alzheimer's Risk-473718 Reviewed date:10/29/2024 06:44:02 PM Interpretation: Performing Lab:[facility], [employer], [place], Phone - [phone], Director - [facility] Notes/Report: Test(s) 680015-h-mwq166 was developed and its performance characteristics determined by [employer]. It has not been cleared or approved by the Food and Drug Administration. Methodology: Patient DNA is assayed for the APOE genotype by PCR amplification of a specific region in exon 4 of the APOE gene followed by digestion with restriction enzyme [employer]er I and separation of fragments by polyacrylamide [...] the APOE4 variant and by approximately 10 ae72-pdwf for individuals with two copies of this [...] developed and its performance characteristics determined by [employer]. It has not been cleared or approved by the Food and Drug Administration. The FDA has determined that such clearance or approval is not necessary. REFERENCES Deanne Butterfield et al. Sex modifies the APOE-related risk of developing Alzheimer disease. Annal Neurol 2014;75(4):563-573 Kristofer CHAVEZ. Alzheimer Disease Overview. [employer] ([employer]). Chad GUERRERO et al., editors. [facility]: [facility], [place], [place]. Last revised 2014. Miller TENA et al. Genetic counseling and testing for Alzheimer disease: Joint practice guidelines of the [place] College [employer] Medical Genetics and the National Society of Genetic Counselors. Rosio in Med 2011;13(4)597-607. Greg NAIK. Apolipoprotein E: Implications for AD neurobiology, epidemiology and risk assessment. Neurobiology of Aging 2011;32:778-790 Phosphorylated Tau 217 (pTau -217) Reviewed date:10/29/2024 06:44:02 PM Interpretation: Performing Lab:[facility], [address] [facility], [place], Phone - [phone], Director - [facility] Notes/Report: Test(s) 996212-a-cep659 was developed and its performance characteristics determined by [employer]. It has not been cleared or approved by the Food and Drug Administration. p-jjp743 0.39 0.00-0.18 pg/mL Clinical cutoff value was established using samples from a patient cohort characterized with amyloid PET data. A p-mze041 value of >0.18 is a reported surrogate marker for beta amyloid pathology, and can be used to facilitate biological identification of Alzheimer's disease (1). p-bzt110 has also been used in clinical trials to monitor patients on anti-amyloid therapy (2,3). Test performed by [employer] chemiluminescent enzyme immunoassay (CLEIA). Values obtained with different methods cannot be used interchangeably. The validated limit of quantification is 0.06 pg/mL. Assay detection limit is 0.03 pg/mL. Footnotes 1. Ezra Negrete, et al. Diagnostic Accuracy of a Plasma Phosphorylated Tau 217 Immunoassay for Alzheimer Disease Pathology. AMBER neurology (2023). 2. Ezra Negrete et al. Differential roles of A42/40, p-dxq378 and p-rgt338 for Alzheimer's trial selection and disease monitoring. Nature medicine 28.12 (2021): 6897-4769. 3. Pontecorvo MJ, Lindsay M, Raquel SC, et al. Association of Donanemab Treatment With Exploratory Plasma Biomarkers in Early Symptomatic Alzheimer Disease: A Secondary Analysis of the TRAILBLAZER-ALZ Randomized Clinical Trial . AMBER Neurol. 2021;79(12):8041-8873. MR Brain Reviewed date:10/29/2024 06:44:02 PM Interpretation: [...] Reviewed and Electronically Signed by: Sol Nath Reviewed date:08/13/2024 06:23:42 PM Interpretation:Negative Performing Lab: Notes/Report: Negative FIT DNA TERRELL 08/12/2024 Thyroxine (T4) Free, Direct- 092743 Reviewed date:07/29/2024 05:58:30 PM Interpretation: Performing Lab:Alexis Pereyra, [address] [place] [address], Phone - [phone], Director - [place] Notes/Report: T4,Free(Direct) 0.78 0.82-1.77 ng/dL CBC With Differential/Platel et-493865 Reviewed date:07/29/2024 05:58:30 PM Interpretation: Performing Lab:[facility] [place], [address] [place] [address], Phone - [phone], Director - [place] Notes/Report: WBC 5.3 3.4-10.8 [...] Grans (Abs) 0.0 0.0-0.1 x10E3/uL Vitamin D, 88-Fpwaejy-697492 Reviewed date:07/29/2024 05:58:30 PM Interpretation: Performing Lab:[facility] [place], [address] [place] [address], Phone - [phone], Director - [place] Notes/Report: Vitamin D, 25-Hydroxy 63.4 30.0-100.0 ng/mL Vitamin D deficiency has been defined by the [place] of Medicine and an Endocrine Society practice guideline as a level of serum 25-OH vitamin D less than 20 ng/mL (1,2). The Endocrine Society went on to further define vitamin D insufficiency as a level between 21 and 29 ng/mL (2). 1. IOM ([place] of Medicine). 2010. Dietary reference intakes for calcium and D. [place]: The National Academies Press. 2. Gwen MF, Roger LANDIN, Nicki PROCTOR, et al. Evaluation, treatment, and prevention of vitamin D deficiency: an Endocrine Society clinical practice guideline. JCEM. 2010; 96(7):1911-30. Comp. Metabolic Panel (14)-3 Reviewed date:07/29/2024 05:58:30 PM Interpretation: Performing Lab:[facility], [address], [place], Phone - [phone], Director - [place] Notes/Report: Glucose 93 70-99 mg/dL BUN 18 [...] IU/L ALT (SGPT) 12 0-32 IU/L LP+Non-HDL Cholesterol-41743 5 Reviewed date:07/29/2024 05:58:30 PM Interpretation: Performing Lab:[facility], [address], [place], Phone - [phone], Director - [place] Notes/Report: Cholesterol, Total 183 100-199 mg/dL Triglycerides 65 0-149 mg/dL HDL Cholesterol 68 >39 mg/dL VLDL Cholesterol Kentrell 12 5-40 mg/dL LDL Chol Calc (NIH) 103 0-99 mg/dL Non-HDL Cholesterol 115 0-129 mg/dL HCV Antibody-[id number] Reviewed date:07/29/2024 05:58:30 PM Interpretation: Performing Lab:[facility], [address], [place], Phone - [phone], Director - [place] Notes/Report: Hep C Virus Ab Non Reactive Non Reactive HCV antibody alone does not differentiate between previously resolved infection and active infection. Equivocal and Reactive HCV antibody results should be followed up with an HCV RNA test to support the diagnosis of active HCV infection. MM Digital Mammo Screening Reviewed date:11/19/2024 09:19:21 PM Interpretation: Performing Lab: Notes/Report: MM Digital Mammo Screening Reviewed date:11/13/2024 01:49:28 PM Interpretation: Performing Lab: Notes/Report: Reason For Referral Reason faxed Diagnosis 1 Alzheimer's disease with early onset (G30.0) Referral Organization Jann BRIDGES Referring Provider First Name Jann Referring Provider Last Name Rajiv Referring Provider Speciality Internal edicine Referred Provider Brendan Fletcher Referred Provider Specialty Neurology General Notes Graciela WILSON 10/2024 01:01:35 PM >faxed, Graciela WILSON 10/24/2024 01:01:42 PM >[facility] [place] 10/28/2024 08:53:31 AM >Received fax, patient booked 11/25/[address] Sams[address] [facility] [place] [place] 10/28/2024 04:41:43 PM >Message sent to patient through portal of appt. Referral Priority Urgent Referral Appointment Date 11/25/2024 Reason faxed Diagnosis 1 Alzheimer's disease with early onset (G30.0) Referral Organization Jann BRIDGES Referring Provider First Name Jann Referring Provider Last Name Rajiv Referring Provider Speciality Internal edicine Referred Provider Brendan Fletcher Referred Provider Specialty [...] Vaccine Route Administration Date Status Comme nts RCKXF-73-Zlytpu Vaccine Unknown 08/19/2020 Administered ZMJLJ-24-Wyogch Vaccine Unknown 09/10/2020 Administered JLFRI-95-Eyyjlx Vaccine Unknown 05/18/2021 Administered *Tdap Unknown 01/30/2011 Administered *Influenza-Quadrivalent IM Intramuscular 04/17/2023 Admini stered *Influenza-Fluzone IM Intramuscular 03/13/2024 Administere d *Qxcbosnna-Owko-WN IM Intramuscular 04/01/2020 Administere d *Rykaqwtbl-Wwcr-GM IM Intramuscular 04/20/2021 Administere d *Pfgyozxlw-Ylgi-FL IM Intramuscular 03/28/2022 Administere d Pnyykhdkc-2286-51 Afluria-Single IM Intramuscular 03/06/2018 Administered Td (adult) preservative free Unknown 08/18/2002 Administered Td (adult) preservative free IM Intramuscular 07/05/2021 Administered Social History Tobacco Use: Social History Observation [...] W/U Status Risk Notes Problem Pernicious anemia (85666730) Vitamin B12 deficiency anemia due to intrinsic factor deficiency (D51.0) Active confirmed Problem Hypothyroidism (74561302) Hypothyroidism, unspecified (E03.9) Active confirmed Problem Vitamin D deficiency (78343065) Vitamin D deficiency, unspecified (E55.9) Active confirmed Problem Recurrent major depression in remission (35891649) Major depressive disorder, recurrent, in partial remission (F33.41) Active confirmed Problem Alzheimer's disease with early onset (893096111) Alzheimer's disease with early onset (G30.0) Active confirmed Problem 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) Aural vertigo, right ear (H81.311) Active confirmed Problem Sensorineural hearing loss of bilateral ears (disorder) (012701421) Sensorineural hearing loss, bilateral (H90.3) Active confirmed Problem Sensorineural hearing loss of right ear with normal hearing on left side (disorder) (8069094052) Sensorineural hearing loss, unilateral, right ear, with unrestricted hearing on the contralateral side (H90.41) Active confirmed Problem Urticaria caused by cold and heat (231832958) 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) Active confirmed Problem Vitiligo (38222299) Vitiligo (L80) Active confirmed Problem Idiopathic scoliosis of thoracic spine (disorder) (817078061) Other idiopathic scoliosis, thoracic region (M41.24) Active confirmed Problem Right side sciatica (855250358861549) Sciatica, right side (M54.31) Active confirmed Problem Menopause (434779735) Menopausal and female climacteric states (N95.1) Active confirmed Problem Panic disorder (076016229) Panic disorder [episodic paroxysmal anxiety] (F41.0) Active confirmed Problem Mild cognitive disorder (380037057) Mild cognitive impairment of uncertain or unknown etiology (G31.84) Active confirmed Problem Supraventricular tachycardia (disorder) (8749012) Other supraventricular tachycardia (I47.19) Active confirmed Problem Moderate major depression, single episode (17673557) Major depressive disorder, single episode, moderate (F32.1) Inactive confirmed Problem Major depression single episode, in partial remission (92681958) Major depressive disorder, single episode, in partial remission (F32.4) Inactive confirmed Problem COVID19 MALLORY-Viru s Identified (U07.1) Problem resolved confirmed Vital Signs Heart Rate 81 /min 11/03/2024 Temperature 96.4 degrees Fahrenheit 07/25/2024 Oximetry 99 % 11/03/2024 Blood pressure diastolic 74 mm Hg 07/25/2024 Height 63.5 in 11/03/2024 Blood pressure systolic 122 mm Hg 07/25/2024 Weight 138 lbs 11/03/2024 BMI 24.06 kg/m2 11/03/2024 Procedures Procedure Date Ordered Date Performed Result Body Sit e HOLTER MONITOR, 7 DAYS, INTERPRETATION 03/13/2024 N/A HOLTER MONITOR, 7 DAYS, APPLICATION 02/14/2024 N/A Encounters Encounter Location Date Provider Diagnosis Jann Vance MD [address] [id number] 02/14/2024 Cintia Sam Palpitations R00.2 ; Major depressive disorder, recurrent, in partial remission F33.41 ; Other supraventricular tachycardia I47.19 and Panic disorder [episodic paroxysmal anxiety] F41.0 Jann Vance MD [address] [id number] 03/13/2024 Cintia Sam Palpitations R00.2 ; Major depressive disorder, recurrent, in partial remission F33.41 ; Other supraventricular tachycardia I47.19 ; Panic disorder [episodic paroxysmal anxiety] F41.0 and Encounter for immunization Z23 Jann Vance MD [address] [id number] 07/25/2024 Jann Vance Major depressive disorder, recurrent, [...] other viral diseases Z11.59 Jann Vance MD [address] [id number] 09/24/2024 Jann Vance Mild cognitive impairment of uncertain or unknown etiology G31.84 and Hypothyroidism, unspecified E03.9 Jann Vance MD [address] [id number] 11/03/2024 Jann Vance Alzheimer's disease with early onset G30.0 and Vitamin B12 deficiency anemia due to intrinsic factor deficiency D51.0 Jann Vance MD [address] [id number] 11/12/2024 Jann Vance Vitamin B12 deficien cy anemia due to intrinsic factor deficiency D51.0 Jann Vance MD [address] [id number] 11/19/2024 Jann Vance Vitamin B12 deficien cy anemia due to intrinsic factor deficiency D51.0 Jann Vance MD [address] [id number] 11/26/2024 Jann Vance Vitamin B12 deficien cy anemia due to intrinsic factor deficiency D51.0 Jann Vance MD [address] [id number] 12/03/2024 Jann Vance Vitamin B12 deficien cy anemia due to intrinsic factor deficiency D51.0 Jann Vance MD [address] [id number] 03/13/2024 Jann Vance MD [address] [id number] 07/29/2024 Jann Vance Hypothyroidism, unspecified E03.9 Jann Vance MD [address] [id number] 08/04/2024 Jann Vance MD [address] [id number] 10/24/2024 Jann Vance MD [address] [id number] 10/24/2024 Jann Vance Alzheimer's disease with early onset G30.0 Jann Vance MD [address] [id number] 10/29/2024 Jann Vance MD [address] [id number] 08/05/2024 Jann Vance Panic disorder [epis odic paroxysmal anxiety] F41.0 Assessments Encounter Date Diagnosis (ICD Code) Assessment Notes Treatment Notes Treatment Clinical Notes Section Notes 09/24/2024 Mild cognitive impairment of uncertain or [...] to intrinsic factor deficiency (ICD-10 - D51.0) 12/03/2024 Vitamin B12 deficiency anemia due to [...] provider and patient may require urgent evaluation 07/29/2024 Hypothyroidism, unspecified (ICD-10 - E03.9) 08/05/2024 [...] Z00.00) General healthcare up-to-date. Check routine labs 03/13/2024 Palpitations (ICD-10 - R00.2) Holter monitor reviewed and NSR noted with intermittent episodes of Sinus Tachycardia. Previous in office EKG also reviewed again which did reveal normal sinus rhythm. Discussed with patient that there is no further workup warranted unless symptoms return or new symptoms of concern began, which patient will follow up with office should this occur 03/13/2024 Major depressive disorder, recurrent, in partial remission (ICD-10 - F33.41) Stable at present time patient to continue on current medication regimen 07/25/2024 Panic disorder [episodic paroxysmal anxiety] (ICD-10 [...] her symptoms of concern during today's visit 09/24/2024 Hypothyroidism, unspecified (ICD-10 - E03.9) Due [...] 30 seconds. At this point can recheck [place] cognitive assessment test and if that is [...] for hepatitis C as per general recommendation 07/25/2024 Other This note was created with [...] 07/17/2022 COMPLETE URINALYSIS 07/24/2023 COMPREHENSIVE METABOLIC PANEL 07/17/2022 COMPREHENSIVE METABOLIC PANEL 06/30/2020 FREE T4 06/30/2020 LIPID PANEL W REFLEX [...] 7 DAYS, INTERPRETATION 1 Thyroxine (T4) Free, Direct-925031 07/29 TSH-171542 07/29/2024 Anti-TPO Ab (RDL)-909518 07/29/2024 Future Test Test Name Order Date Tamra Screening Digital 10/19/2020 CBC 06/21/2022 COMPREHENSIVE METABOLIC PANEL 06/21/2022 HEPATITIS C VIRUS SCREEN 06/21/2022 LIPID PROFILE 06/21/2022 URINALYSIS 06/21/2022 VITAMIN D, 25-HYDROXY 06/21/2022 Next Appt Details Provider Name:Jann Vance , 02/12/2025 10:15:00 AM, [address] [place] [address], [phone], Provider Name:Jann Vance , 04/28/2025 09:30:00 AM, [address] [place] [address], [phone], Provider Name:Jann Vance , 08/03/2025 08:30:00 AM, [address] [place] [address], [phone], Insurance Providers Payer Name Payer Address Payer Phone Subscriber Number Group Number Insured Name Patient Relationship to Insured Coverage Start Date Coverage End Date [facility] [address] [facility] [address] [place] [phone] [id number] Self - patient is [...]
== END 2025-02-04 09:55 | disposition home or self-care (01) ==
LOC: HO.HSM 09:10
PROVIDERS: PCP Internal Medicine; Visit Provider Psychiatry & Neurology Neurology
DX: G30.0 Alzheimer's disease with early onset (principal); F02.80 Dementia in other diseases classified elsewhere, unspecified severity, without behavioral disturbance, psychotic disturbance, mood disturbance, and anxiety; G31.84 Mild cognitive impairment of uncertain or unknown etiology
CPT/HCPCS: 99214

== ENCOUNTER 2025-04-01 11:15 | Outpatient (REF) | payer OTHER, SELFPAY ==
--- OUTSIDE RECORDS SUMMARY | 2024-11-20 03:45 | XMS_ITS ---
Author Organization Jann Vance MD Address [address] [phone] Care Team Providers Care Fire Hydrant Mechanic Name Role Phone Jann Vance Primary Care Provider REASON FOR VISIT b12 injection Encounters Encounter Location Date Provider Diagnosis Jann Vance MD [address] [place] [address] [place] [id number] 11/20/2024 Jann Vance Plan Of Treatment Next Appt Details Provider Name:Jann Vance , 04/28/2025 09:30:00 AM, [address] [place] [address], [phone], Provider Name:Jann Vance , 08/03/2025 08:30:00 AM, [address] [place] [address], [phone], Progress Notes * Jessica DAVILAB:0 1970 (54 yo F)Acc No.[id number]:11/20/2024 Progress Note Patient: Geeta MULLIGAN Landy BARRY Provider: Greer Vance MD :1970 A ge:53 Y S ex:Female Date:11/20/2024 Address:[address], [place], [id number] Subjective: * Chief Complaints: * 1 . B12 injection. * Medical History: Objective: * Vitals: Past Vitals:* 11/03/2024 HR:81/min, Wt:138lbs, BMI:24 .06Index, Ht:63.5in, Oxygen sat %:99% * 07/25/2024 Temp:96.4F, HR:75/min, BP:Si tting Right Arm: 122/74mm Hg, Wt:135lbs, BMI:23.54Index, Ht:63.5in, Oxygen sat %:96% * 03/13/2024 Temp:96.6F, HR:77/min, Wt:13 3lbs, BMI:23.19Index, Ht:63.5in, Oxygen sat %:99% Assessment: Plan: * Treatment: * Images: Billing Information: * Visit Code: * Procedure Codes: * Electronic signature of Nora Vance MD on 04/01/2025 at 01:58 PM EST Sign off status: Pending * Provider: Greer Vance MD Date: 0 11/20/2024 Generated for Tiki merino/Teresa/Cait on: 06/01/2024 01:58 PM EST
--- OUTSIDE RECORDS SUMMARY | 2025-04-01 13:58 | XMS_ITS | Patient Health Record ---
Author Organization Jann Vance MD Address [address] [place] [id number] Care Team Providers Care Boom Operator Name Role Phone Jann Vance Primary Care Provider Allergies No Known Allergies Results Component Value Reference Range Notes Vitamin [id number] Reviewed date:10/29/2024 06:44:01 PM Interpretation: Performing Lab:[facility], [facility] [address] [place] [address], Phone - [phone], Director - [facility] Notes/Report: Test(s) [id number] was developed and its performance characteristics determined by [facility]. It has not been cleared or approved by the Food and Drug Administration. Vitamin B12 413 849-3195 pg/mL Thyroxine (T4) Free, Direct- [id number] Reviewed date:10/29/2024 06:44:02 PM Interpretation: Performing Lab:[facility], [facility], Phone - [phone], Director - [facility] Notes/Report: Test(s) [id number] was developed and its performance characteristics determined by [facility]. It has not been cleared or approved by the Food and Drug Administration. T4,Free(Direct) 0.76 0.82-1.77 ng/dL TSH-071836 Reviewed date:10/29/2024 06:44:02 PM Interpretation: Performing Lab:[facility], [facility], Phone - [phone], Director - [facility] Notes/Report: Test(s) [id number]-n-[id number] was developed and its performance characteristics determined by [facility]. It has not been cleared or approved by the Food and Drug Administration. TSH 2.970 0.450-4.500 uIU/mL APOE Alzheimer's Risk-752197 Reviewed date:10/29/2024 06:44:02 PM Interpretation: Performing Lab:[facility], [address], Phone - [phone], Director - [facility] Notes/Report: Test(s) [id number] was developed and its performance characteristics determined by [facility]. It has not been cleared or approved by the Food and Drug Administration. Methodology: Patient DNA is assayed for the APOE genotype by PCR amplification of a specific region in exon 4 of the APOE gene followed by digestion with restriction enzyme Bottom Saw Operator I and separation of fragments by polyacrylamide [...] For inquiries or genetic consultation, please call [employer] at . Comment: INFORMATION ABOUT THE APOE [...] the APOE4 variant and by approximately 10 mx24-wjnp for individuals with two copies of this [...] developed and its performance characteristics determined by [facility]. It has not been cleared or approved by the Food and Drug Administration. The FDA has determined that such clearance or approval is not necessary. REFERENCES Deanne Butterfield et al. Sex modifies the APOE-related risk of developing Alzheimer disease. Annal Neurol 2014;75(4):563-573 Bird TD. Alzheimer Disease Overview. GeneReviews (internet). Chad GUERRERO et al., editors. [facility]: [facility], [place], [place]. Last revised 2014. Miller TENA et al. Genetic counseling and testing for Alzheimer disease: Joint practice guidelines of the [place] [employer] Genetics and the National Society of Genetic Counselors. Rosio in Med 2011;13(1)835-432. Greg NAIK. Apolipoprotein E: Implications for AD neurobiology, epidemiology and risk assessment. Neurobiology of Aging 2011;32:778-790 [facility] Informed Consent Fo Reviewed date:10/29/2024 06:44:02 PM Interpretation: Performing Lab:[facility], [address], [place], Phone - [phone], Director - [facility] Notes/Report: [facility] Informed Consent Form [facility] Informed Consent Form 02 Please Fax back to [phone]. Many states require laboratories to have documentation [...] of the sample when testing is complete. [facility] did not receive any documentation of informed consent for above mentioned patient and ordered tests. Please check the statement applicable to this patient and sign below so that [facility] may release the results for this patient. . [] I authorize and confirm patient consent for the above mentioned genetic test(s). . [] I have provided appropriate informed consent for the above mentioned test(s) and documentation of this consent is maintained in the patient record. . . Health care provider signature D ate . Printed name . Fax back to [facility] at [phone] . [facility] Phosphorylated Tau 217 (pTau -217) Reviewed date:10/29/2024 06:44:02 PM Interpretation: Performing Lab:[facility], [address], Phone - [phone], [facility] Notes/Report: Test(s) [id number] was developed and its performance characteristics determined by [facility] It has not been cleared or approved by the Food and Drug Administration. p-mlh337 0.39 0.00-0.18 pg/mL Clinical cutoff value was established using samples from a patient cohort characterized with amyloid PET data. A p-dqw463 value of >0.18 is a reported surrogate marker for beta amyloid pathology, and can be used to facilitate biological identification of Alzheimer's disease (1). p-hnk457 has also been used in clinical trials to monitor patients on anti-amyloid therapy (2,3). Test performed by [employer] chemiluminescent enzyme immunoassay (CLEIA). Values obtained with different methods cannot be used interchangeably. The validated limit of quantification is 0.06 pg/mL. Assay detection limit is 0.03 pg/mL. Footnotes 1. Ezra Negrete, et al. Diagnostic Accuracy of a Plasma Phosphorylated Tau 217 Immunoassay for Alzheimer Disease Pathology. AMBER neurology (2023). 2. Ezra Negrete, et al. Differential roles of A42/40, p-wcf763 and p-ufe989 for Alzheimer's trial selection and disease monitoring. Nature medicine 28.12 (2021): 7834-8242. 3. Roque LAMBERT, Lindsay M, Raquel SC, et al. Association of [place] Treatment With Exploratory Plasma Biomarkers in Early Symptomatic Alzheimer Disease: A Secondary Analysis of the TRAILBLAZER-ALZ Randomized Clinical Trial . AMBER Neurol. 2021;79(12):9507-6469. MR Brain Reviewed date:10/29/2024 06:44:02 PM Interpretation: [...] and Electronically Signed by: Angelica Leavitt M.D. [facility] Reviewed date:08/13/2024 06:23:42 PM Interpretation:Negative Performing Lab: Notes/Report: Negative FIT DNA OGUARD 08/12/2024 Thyroxine (T4) Free, Direct- [id number] Reviewed date:07/29/2024 05:58:30 PM Interpretation: Performing Lab:[facility], [address] [place] [address], Phone - [phone], Director - [facility] Notes/Report: T4,Free(Direct) 0.78 0.82-1.77 ng/dL Urinalysis, Complete-[id number] Reviewed date:07/29/2024 05:58:30 PM Interpretation: Performing Lab:[facility], [address] [place] [address], Phone - [phone], Director - [facility] Notes/Report: Specific [place] 1.020 1.005-1.030 pH 7.0 5.0-7.5 Urine-Color Yellow [...] None seen None seen/Few CBC With Differential/Platel et-604729 Reviewed date:07/29/2024 05:58:30 PM Interpretation: Performing Lab:[facility] [place], [address] [facility], Phone - [phone], Director - [place] Notes/Report: WBC 5.3 3.4-10.8 [...] Grans (Abs) 0.0 0.0-0.1 x10E3/uL Vitamin D, 94-Dnrkfvq-951317 Reviewed date:07/29/2024 05:58:30 PM Interpretation: Performing Lab:[facility] [place], [address] [place] [address], [place], Phone - [phone], Director - [place] Notes/Report: Vitamin D, 25-Hydroxy 63.4 30.0-100.0 ng/mL Vitamin D deficiency has been defined by the [place] of Medicine and an Endocrine Society practice guideline as a level of serum 25-OH vitamin D less than 20 ng/mL (1,2). The Endocrine Society went on to further define vitamin D insufficiency as a level between 21 and 29 ng/mL (2). 1. IOM ([place] of Medicine). 2010. Dietary reference intakes for calcium and D. [place]: The National Academies Press. 2. Gwen MF, Roger LANDIN, Nicki PROCTOR, et al. Evaluation, treatment, and prevention of vitamin D deficiency: an Endocrine Society clinical practice guideline. JCEM. 2010; 96(7):1911-30. Comp. Metabolic Panel (14)-3 Reviewed date:07/29/2024 05:58:30 PM Interpretation: Performing Lab:[facility] [place], [address] [facility], Phone - [phone], Director - [place] Notes/Report: Glucose 93 70-99 [...] IU/L ALT (SGPT) 12 0-32 IU/L LP+Non-HDL Cholesterol-89046 5 Reviewed date:07/29/2024 05:58:30 PM Interpretation: Performing Lab:[facility] [place], [address] [place], [place], Phone - [phone], Director - [facility] Notes/Report: Cholesterol, Total 183 100-199 mg/dL Triglycerides 65 0-149 mg/dL HDL Cholesterol 68 >39 mg/dL VLDL Cholesterol Kentrell 12 5-40 mg/dL LDL Chol Calc (NIH) 103 0-99 mg/dL Non-HDL Cholesterol 115 0-129 mg/dL HCV Antibody-[id number] Reviewed date:07/29/2024 05:58:30 PM Interpretation: Performing Lab:[facility] [place], [address], [place], Phone - [phone], Director - [place] Notes/Report: Hep C Virus [...] Lab: Notes/Report: MM Digital Mammo Screening Reviewed date:11/19/2024 09:19:21 [...] (Negative) Lay letter mailed to patient WSN: [id number] Ordering Physician: Jann Vance Dictated By: Wendy Riggs MD MM Digital Mammo Screening Reviewed date:11/13/2024 01:49:28 PM Interpretation: Performing Lab: Notes/Report: Reason For Referral Reason faxed Diagnosis 1 Alzheimer's disease with early onset (G30.0) Referral Organization Jann Vance MD Referring Provider First Name Jann Referring Provider Last Name Rajiv Referring Provider Speciality Internal M edicine Referred Provider Brendan Fletcher Referred Provider Specialty Neurology General Notes Graciela WILSON 10/2024 01:01:35 PM >faxed, Graciela WILSON 10/24/2024 01:01:42 PM >To Berenice for appt.STEVE Giselle 10/28/2024 08:53:31 AM >Received fax, patient booked 11/25/[address] Sams., Graciela WILSON 10/28/2024 04:41:43 PM >Message sent to patient through portal of [employer]. Referral Priority Urgent Referral Appointment Date 11/25/2024 Reason faxed Diagnosis 1 Alzheimer's disease with early onset (G30.0) Referral Organization Jann Vance [facility] Referring Provider First Name Jann Referring Provider Last Name Rajiv Referring Provider Speciality Internal M edicine Referred Provider Brendan Fletcher Referred Provider Specialty Neurology General Notes STEVEGraciela 10/19 04:49:32 PM >faxed Referral Priority Routine Medications Medication SIG (Take, Route, Frequency, Duration) Notes Start Date End Date Status Citalopram Hydrobromide 10 MG TAKE 1 TABLET BY MOUTH EVERY DAY; Duration: 90 Active Cyanocobalamin 1000 MCG 1 tablet Orally Once a day; Duration: 90 days 10/29/2024 10/24/2025 Not-Taking LORazepam 1 MG 1 Tablet Orally Once a day 03/16/2025 Active Immunizations Vaccine Route Administration Date Status Comme nts WOKXV-00-Rkkzdl Vaccine Unknown 08/19/2020 Administered WVNNR-04-Nkjtyk Vaccine Unknown 09/10/2020 Administered HDLID-26-Yqnhkk Vaccine Unknown 05/18/2021 Administered *Tdap Unknown 01/30/2011 Administered *Td (adult) preservative free Unknown 08/18/2002 Administered *Td (adult) preservative free IM Intramuscular 07/05/2021 Administered *Influenza-Quadrivalent IM Intramuscular 04/17/2023 Admini stered *Influenza-Flublok IM Intramuscular 03/13/2024 Administere d *Kumvdeytp-Zrqb-QW IM Intramuscular 04/01/2020 Administere d *Ylmxeklem-Lwzk-KW IM Intramuscular 04/20/2021 Administere d *Fyichsxuq-Vrjd-HD IM Intramuscular 03/28/2022 Administere d Lqqfasnme-5103-76 Afluria-Single IM Intramuscular 03/06/2018 Administered Social History Tobacco Use: Social History [...] (Standard) Question Answer Notes Tobacco use: Nonsmoker Section Notes: Occupation: Works part-time Household income: is retired; household income is reduced Living situation: Has grandchildren living at home Problems Problem Type SNOMED Code ICD Code Onset Dates Problem Status W/U Status Risk Notes Problem Pernicious anemia (52570475) Vitamin B12 deficiency anemia due to intrinsic factor deficiency (D51.0) Active confirmed Problem Hypothyroidism (68053064) Hypothyroidism, unspecified (E03.9) Active confirmed Problem Vitamin D deficiency (98170266) Vitamin D deficiency, unspecified (E55.9) Active confirmed Problem Recurrent major depression in remission (71104472) Major depressive disorder, recurrent, in partial remission (F33.41) Active confirmed Problem Alzheimer's disease with early onset (505974792) Alzheimer's disease with early onset (G30.0) Active confirmed Problem 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) Aural vertigo, right ear (H81.311) Active confirmed Problem Sensorineural hearing loss of bilateral ears (disorder) (535054685) Sensorineural hearing loss, bilateral (H90.3) Active confirmed Problem Sensorineural hearing loss of right ear with normal hearing on left side (disorder) (9922778504) Sensorineural hearing loss, unilateral, right ear, with unrestricted hearing on the contralateral side (H90.41) Active confirmed Problem Urticaria caused by cold and heat (146290087) 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) Active confirmed Problem Vitiligo (51380732) Vitiligo (L80) Active confirmed Problem Idiopathic scoliosis of thoracic spine (disorder) (508063854) Other idiopathic scoliosis, thoracic region (M41.24) Active confirmed Problem Right side sciatica (114692587919550) Sciatica, right side (M54.31) Active confirmed Problem Menopause (044581290) Menopausal and female climacteric states (N95.1) Active confirmed Problem Panic disorder (047835152) Panic disorder [episodic paroxysmal anxiety] (F41.0) Active confirmed Problem Dementia in othe r diseases classified elsewhere, mild, without behavioral disturbance, psychotic disturbance, mood disturbance, and anxiety (F02.A0) Active confirmed Problem Mild cognitive disorder (013514528) Mild cognitive impairment of uncertain or unknown etiology (G31.84) Active confirmed Problem Supraventricular tachycardia (disorder) (3173817) Other supraventricular tachycardia (I47.19) Active confirmed Problem Moderate major depression, single episode (46733521) Major depressive disorder, single episode, moderate (F32.1) Inactive confirmed Problem Major depression single episode, in partial remission (15286018) Major depressive disorder, single episode, in partial remission (F32.4) Inactive confirmed Problem COVID19 MALLORY-Viru s Identified (U07.1) Problem resolved confirmed Vital Signs Heart Rate 81 /min 11/03/2024 Temperature 96.4 degrees Fahrenheit 07/25/2024 Oximetry 99 % 11/03/2024 Blood pressure diastolic 70 mm Hg 02/12/2025 Height 63.5 in 11/03/2024 Blood pressure systolic 130 mm Hg 02/12/2025 Weight 138 lbs 11/03/2024 BMI 24.06 kg/m2 11/03/2024 Encounters Encounter Location Date Provider Diagnosis Jann Vance MD [address] [id number] 07/25/2024 Jann Vance Major depressive disorder, recurrent, [...] other viral diseases Z11.59 Jann Vance MD [address] [id number] 09/24/2024 Jann Vance Mild cognitive impairment of uncertain or unknown etiology G31.84 and Hypothyroidism, unspecified E03.9 Jann Vance MD [address] [id number] 11/03/2024 Jann Vance Alzheimer's disease with early onset G30.0 and Vitamin B12 deficiency anemia due to intrinsic factor deficiency D51.0 Jann Vance MD [address] [id number] 11/12/2024 Jann Vance Vitamin B12 deficien cy anemia due to intrinsic factor deficiency D51.0 Jann Vance MD [address] [id number] 11/19/2024 Jann Vance Vitamin B12 deficien cy anemia due to intrinsic factor deficiency D51.0 Jann Vance MD [address] [id number] 11/26/2024 Jann Vance Vitamin B12 deficien cy anemia due to intrinsic factor deficiency D51.0 Jann Vance MD [address] [id number] 12/03/2024 Jann Vance Vitamin B12 deficien cy anemia due to intrinsic factor deficiency D51.0 Jann Vance MD [address] [id number] 02/12/2025 Jann Vance Alzheimer's disease with early onset G30.0 and Dementia in other diseases classified elsewhere, mild, without behavioral disturbance, psychotic disturbance, mood disturbance, and anxiety F02.A0 Jann Vance MD [address] [id number] 07/29/2024 Jann Vance Hypothyroidism, unspecified E03.9 Jann Vance MD [address] [id number] 08/04/2024 Jann Vance MD [address] [id number] 10/24/2024 Jann Vance MD [address] [id number] 10/24/2024 Jann Vance Alzheimer's disease with early onset G30.0 Jann Vance MD [address] [id number] 10/29/2024 Jann Vance MD [address] [id number] 02/13/2025 Jann Vance Alzheimer's disease with early onset G30.0 Jann Vance MD [address] [id number] 02/16/2025 Jann Vance MD [address] [id number] 03/25/2025 Jann Vance MD [address] [id number] 08/05/2024 Jann Vance Panic disorder [epis odic paroxysmal anxiety] F41.0 Jann Vance MD [address] [id number] 03/13/2025 Jann Vance Panic disorder [epis odic paroxysmal anxiety] F41.0 Assessments Encounter Date Diagnosis (ICD Code) Assessment Notes Treatment Notes Treatment Clinical Notes Section Notes 07/25/2024 Major depressive disorder, recurrent, in partial [...] to intrinsic factor deficiency (ICD-10 - D51.0) 02/12/2025 Alzheimer's disease with early onset (ICD-10 - G30.0) Memory issues have been ongoing and led to evaluation. Blood test revealed abnormal Tau protein, supporting diagnosis. MoCA score of 24 indicates mild cognitive impairment. Lumbar puncture performed as part of diagnostic workup. Diagnosis confirmed by specialist review and test results. - PET scan of the brain for further evaluation still pending. - Refered to Neurology for management and monthly infusions. - Send [place] prescription to specialty pharmacy for insurance approval. - Coordinate with insurance for medication, infusion center, and MRI coverage. - Advise patient to consider switching insurance plans to secure coverage. - Discuss Social Security Disability and Medicare eligibility as options for coverage. - Plan to appeal insurance denial if necessary. 02/12/2025 Dementia in other diseases classified elsewhere, mild, without behavioral disturbance, psychotic disturbance, mood disturbance, and anxiety (ICD-10 - F02.A0) As above 02/13/2025 Alzheimer's disease with early onset (ICD-10 - G30.0) 03/13/2025 Panic disorder [episodic paroxysmal anxiety] (ICD-10 - F41.0) 07/29/2024 Hypothyroidism, unspecified (ICD-10 - E03.9) 08/05/2024 Panic disorder [episodic paroxysmal anxiety] (ICD-10 - F41.0) 09/24/2024 Hypothyroidism, unspecified (ICD-10 - E03.9) Due for recheck labs to verify stable and adequate control. 07/25/2024 Panic disorder [episodic paroxysmal anxiety] (ICD-10 [...] 30 seconds. At this point can recheck [place] cognitive assessment test and if that is [...] syntax. Also labs were reviewed with patient. 02/12/2025 Other This note was created with a combination of voice dictation recognition software in combination with voice recognition software with AI as allowed by patient consent. It may contain errors of grammar and syntax. [...] 7 DAYS, INTERPRETATION 1 Thyroxine (T4) Free, Direct-672451 07/29 TSH-980927 07/29/2024 Anti-TPO Ab (RDL)-737826 07/29/2024 Future Test Test Name Order Date Tamra Screening Digital 10/19/2020 CBC 06/21/2022 COMPREHENSIVE METABOLIC PANEL 06/21/2022 HEPATITIS C VIRUS SCREEN 06/21/2022 LIPID PROFILE 06/21/2022 URINALYSIS 06/21/2022 VITAMIN D, 25-HYDROXY 06/21/2022 Next Appt Details Provider Name:Jann Rajiv , 04/28/2025 09:30:00 AM, [address] [place] [address], [phone], Provider Name:Jann Rajiv , 08/03/2025 08:30:00 AM, [address] [place] [address], [place], [place], [phone], Insurance Providers Payer Name Payer Address Payer Phone Subscriber Number Group Number Insured Name Patient Relationship to Insured Coverage Start Date Coverage End Date [facility] [address] [place] [address] [phone] [id number] Landy Gomez Self - patient is [...]
--- OUTSIDE RECORDS SUMMARY | 2025-04-01 13:58 | XMS_ITS | Clinical Summary ---
Author Organization [facility] [place] [address] Care Team Providers Care Java Websphere Developer Name Role Phone Jann Vance MD Primary Care Provider [phone] Surgical History Surgery Date Site/Laterality Comments OTHER SURGICAL HISTORY PROCEDURE: HYSTEROSCOPY, SURGICAL/ABLATION TUBAL LIGATION PROCEDURE: HISTORICAL TUBAL LIGATION OTHER SURGICAL HISTORY 02/2023 PROCEDURE: CO ANES CARDIAC ELECTROPHYSIOL STDY W/RF ABLATION; COMMENT: cardiav ablatojliliam Medical History Medical History Date Comments SVT (supraventricular tachyc ardia) (CMS/HCC V24) DX:SVT (supraventricular tac hycardia) ([facility]); COMMENT: cardiology - [address] [facility] [...] Last Done Comments Breast Cancer Screening 1969 Colorectal Cancer Screening: Colonoscopy 1969 DTaP,Tdap,and Td Vaccines (1 - Tdap) 1988 Hepatitis B Vaccines (1 of 3 - 19+ 3-dose series) 1988 Cervical Cancer Screening: P ap Smear 1990 Pneumococcal Vaccine: 50+ Ye ars (1 of 1 - PCV) 12/16/2019 Zoster Vaccines (1 of 2) 12/16/2019 HIV Screening 04/19/2022 Hepatitis C Screening 04/19/2022 Social Influencers of Health Screening 04/19/2022 Depression Screening 05/21/2024 COVID-19 Vaccine (1 - 2024-2 6 season) 2025 Influenza Vaccine (#1) 2025 RSV Immunization Adult Patie nts (1 - 1-dose 75+ series) 2044 HIB Vaccines Aged Out No longer eligi [...] age to complete this topic Care Teams Java Websphere Developer Relationship Specialty Start Date End Date Jann Vance MD PCP - General 12/20/17
[2025-04-01 19:46] LABS: Folate 13.1 ng/mL (> or = 4.0); Vitamin B12 225 pg/mL (200-900)
== END 2025-04-01 11:16 | disposition home or self-care (01) ==
LOC: HO.LAB 11:15
PROVIDERS: PCP Internal Medicine; Visit Provider Psychiatry & Neurology Neurology
DX: E53.8 Deficiency of other specified B group vitamins (principal); G31.84 Mild cognitive impairment of uncertain or unknown etiology
CPT/HCPCS: 36415; 82607; 82746; 84443